=== PATIENT | female | born 1955 | race American Indian/Alaskan Native ===

== ENCOUNTER 2017-07-07 20:50 | Emergency (ER) | payer MEDICARE, OTHER ==
[~2017-07-07] VITALS: Ht 160 cm; Wt 99.3 kg
[~2017-07-07 20:50] MED LIST: ACTOS15 MG PO; ADULT LOW DOSE81 MG PO; ASPIRIN325 MG PO; CALCIO DEL MAR500 MG PO; CITALOPRAM HBR20 MG PO; CRESTOR20 MG PO; FISH OIL500 MG PO; GLIPIZIDE ER10 MG PO; GLUCOPHAGE1000 MG PO; HYDROCHLOROTH12.5 M1 PO; LANTUS100 UNITS/ SUB-Q; LISINOPRIL20 MG PO; METFORMIN HCL500 M1 PO; NORCO 5-325 TA1 EACH PO; NORVASC10 MG PO; NOVOLOG100 UNIT/1 SUB-Q; PLAVIX75 MG PO; ZESTRIL40 MG PO; ZOCOR40 MG PO
[2017-07-07] MEDS ORDERED: LISINOPRIL10 MG PO (21:06)
[2017-07-07] MEDS ORDERED: NORCO 5-325 TA1 EACH PO (22:03)
== END 2017-07-07 22:24 | disposition home or self-care (01) ==
LOC: ED 20:50
DX: S42.302A Unspecified fracture of shaft of humerus, left arm, initial encounter for closed fracture (principal); Z86.73 Personal history of transient ischemic attack (TIA), and cerebral infarction without residual deficits; E11.9 Type 2 diabetes mellitus without complications; Z79.4 Long term (current) use of insulin; Z79.899 Other long term (current) drug therapy; W08.XXXA Fall from other furniture, initial encounter
CPT/HCPCS: 73030; 73060; 99283

== ENCOUNTER 2019-04-19 07:13 | Inpatient (IN) | payer MEDICARE, OTHER ==
[~2019-04-19] VITALS: Ht 160 cm; Wt 98.6 kg
[~2019-04-19 07:13] MED LIST changes: +CLEOCIN HCL300 MG PO; +LISINOPRIL10 MG PO
--- NOTE | 2019-04-19 11:51 | NUR ---
PT UP TO BSC X2 ASSIST. TOLERATED WELL. VOIDED 500ML CLEAR YELLOW URINE. DICKERSON NOTED. O2-2L IN PLACE, SPPO2 92-99%. CALL LIGHT IN REACH. DENIES NEEDS AT THIS TIME. DENIES PAIN.
[2019-04-19] MEDS ORDERED: ZOLOFT50 MG PO (12:16)
[2019-04-19] MEDS ORDERED: CRESTOR5 MG PO ×2 (12:16→12:17)
[2019-04-19] MEDS ORDERED: LISINOPRIL20 MG PO (12:17)
[2019-04-19] MEDS ORDERED: CALCIUM 600 +1 EAC3 PO (12:18)
[2019-04-19] MEDS ORDERED: OXYBUTYNIN CHLOR5 M1 PO (12:19)
[2019-04-19] MEDS ORDERED: MULTI VITAMIN1 EACH PO (12:19)
[2019-04-19] MEDS ORDERED: JANUMET 50-1,01 EACH PO (12:20)
--- NOTE | 2019-04-19 12:44 | EKG ---
[facility] [address] [facility] [place] [address] Signed Normal sinus rhythm Normal ECG When compared with ECG of 19-APR-2019 07:20, (Unconfirmed) premature ventricular complexes are no longer present Confirmed by KRISS KINGSTON MD ([id number]) on 04/19/2019 12:44:04 PM Electronically Signed By: KRISS KINGSTON MD 04/19/19 1244 PATIENT NAME: CHADWICKHENRIQUE TERRENCE Electrocardiogram DATE OF : 53 PHYSICIAN: KRISS KINGSTON MD REPORT #: [id number] REPORT IS CONFIDENTIAL AND NOT TO BE RELEASED WITHOUT AUTHORIZATION
--- NOTE | 2019-04-19 12:44 | EKG ---
[facility] [address] [place] [address] Signed Poor data quality, interpretation may be adversely affected Sinus tachycardia with occasional premature ventricular complexes Incomplete right bundle branch block Cannot rule out Anteroseptal infarct , age undetermined Abnormal ECG When compared with ECG of 08-JUL-2016 11:11, premature ventricular complexes are now present Incomplete right bundle branch block is now present Minimal criteria for Anteroseptal infarct are now present Confirmed by KRISS KINGSTON MD ([id number]) on 04/19/2019 12:43:42 PM Electronically Signed By: KRISS KINGSTON MD 04/19/19 1244 PATIENT NAME: HENRIQUE GENAO TERRENCE Electrocardiogram DATE OF : 53 PHYSICIAN: KRISS KINGSTON MD REPORT #: [id number] REPORT IS CONFIDENTIAL AND NOT TO BE RELEASED WITHOUT AUTHORIZATION
--- NOTE | 2019-04-19 12:45 | NUR ---
ASSISTED PT UP TO BSC X1 ASSIST. VOIDED CLEAR YELLOW URINE. BACK TO BED. DAUGHTER AT BEDSIDE. PT EATING LUNCH. CALL LIGHT IN REACH.
[2019-04-19] MEDS ORDERED: LANTUS100 UNITS/ SUB-Q (13:34)
--- NOTE | 2019-04-19 14:10 | NUR ---
SPOKE WITH PATIENT AND DAUGHTER TORIN ALONZO IN ROOM. PATIENT LIVES WITH DAUGHTER AND HER FAMILY. PATIENT USES A CANE. THEY HAVE A WHEELCHAIR TO USE IF NEEDED. HOME HAS A RAMP. PATIENT WISHES TO RETURN HOME AT DISCHARGE. DAUGHTER STATES THEY ARE WONDERING ABOUT HELP AT HOME. DISCUSSED THEY CAN ASK FOR AN ASSESSMENT THROUGH THE [facility] FOR CAREGIVING HOURS. DISCUSSED THEY CAN HIRE HELP. DISCUSSED THAT [facility] HAS [facility] NURSES AND THEY CAN WORK WITH THEM TO HELP THEM WITH THESE ISSUES. THEY WOULD LIKE TO GO THROUGH [facility]. THEY ARE OK WITH ME CONTACTING THEM. PATIENT HAS CPAP. PATIENT DOES NOT USE OXYGEN AT HOME. WILL CONTINUE TO FOLLOW.
--- NOTE | 2019-04-19 14:20 | NUR ---
assisted pt up to bsc x1 asssit. tolerated well. voided and had small bm. denies pain or shortness of breath at this time. family at bedside. call light in reach. denies needs.
--- NOTE | 2019-04-19 15:40 | NUR ---
CONTACTED LEROY MCDONALD RN [facility] [phone]. DISCUSSED PATIENTS NEEDS. SHE WILL CONTACT PATIENT AND DAUGHTER TO START WORKING WITH THEM AT DISCHARGE.
--- NOTE | 2019-04-19 15:40 | NUR ---
PT RESTING IN BED. FAMILY AT BEDSIDE. DENIES NEEDS AT THIS TIME. CALL LIGHT IN REACH.
--- NOTE | 2019-04-19 16:36 | NUR ---
PT UP TO THE BEDSIDE COMMODE, THEN BACK TO BED. DID THIS ACTIVITY WELL.
--- NOTE | 2019-04-19 17:31 | NUR ---
pt up to bedsdie commode had a medium soft liquid BM. Stool has strong ordor, but pt states that is normal.
--- NOTE | 2019-04-19 17:54 | NUR ---
PT ATE ALL OF DINNER. STATES "I AM FEELING MUCH BETTER". FAMILY AT BEDSIDE. DENIES PAIN. DENIES NEEDS. CALL LIGHT IN REACH
--- NOTE | 2019-04-19 18:51 | NUR ---
PT UP TO BSC X1 ASSIST. TOLERATED FAIR, SOME DICKERSON NOTED. SPO2 98% ON 2L VIA NC. FAMILY AT BEDSIDE. PT DENIES PAIN OR NEEDS AT THIS TIME. CALL LIGHT IN REACH
--- NOTE | 2019-04-19 19:18 | NUR ---
PT UP TO BSC X1 ASSIST. VOIDED. PERICARE PROVIDED, PT BACK TO BED. DENIES PAIN OR SHORTNESS OF BREATH. PT NOTED TO BE MILDLY DICKERSON. CALL LIGHT IN REACH. FAMILY AT BEDSIDE.
--- NOTE | 2019-04-19 20:10 | NUR ---
RESTING IN BED, VISITING WITH FAMILY. UPDATE GIVEN TO FAMILY, EXPLAINED THAT THE DOCTOR WHILE CHECKING WITH THE NURSES WOULD NOT BE IN TO SEE PT TONIGHT. ALSO EXPLAINED THAT ECHOCARDIAGRAM RESULTS TAKE ABOUT 2 DAYS TO COME BACK. PT IS ALERT AND STATES IS BREATHING BETTER. RESP ARE 30-32 AT REST IN BED BUT UNLABORED. BREATH TONES HAVE CRACKLES BASES BILAT R GREATER THAN LEFT. EDEMA IN LOWER EXTREMITIES IS IMPROVING. FAMILY ASKING FOR ABX FOR LEGS. EXPLAINED IS NOT AN INFECTION BUT SORES ARE DUE TO THE EDEMA WHICH CAN CAUSE ITCHING. RECOMENDED COMPRESSION SOCKS.
--- NOTE | 2019-04-19 21:01 | NUR ---
UP TO BSC TO VOID SMALL AMT. IS SLIGHTLY IMPULSIVE BUT FOLLOWS DIRECTIONS WELL. NO INC IN SOB.
--- NOTE | 2019-04-19 21:40 | NUR ---
BS 259 GIVEN 7 UNITS REG INSULIN, AND 100 UNITS LANTUS SUB Q. READY FOR SLEEP. CPAP IN PLACE PER RT.
--- NOTE | 2019-04-19 23:15 | NUR ---
UP TO BSC TO VOID, KATHARINA WELL. BACK TO BED WITHOUT PROBLEM. IS DIAPHORETIC WITH MULT BLANKETS IN PLACE. WHEN ASKED IF SHE WANTED THEM PT STATED YES.
--- NOTE | 2019-04-20 00:55 | NUR ---
PT CALLED OUT FOR ASSISTANCE TO GO TO BATHROOM. TO BSC WITH ONE PERSON ASSIST. VOIDING SMALL AMTS. NO SOB
--- NOTE | 2019-04-20 01:16 | NUR ---
CALLED OUT AGAIN NEEDING TO GO TO BR, UPT BSC, NO VOID. BLADDER SCANNED AND BLADDER WAS EMPTY. BACK ON BIAP FOR SLEEP.
--- NOTE | 2019-04-20 02:45 | NUR ---
UP TO BSC TO VOID. KATHARINA WELL, IV DISLODGED AND DC'D. NO SOB. PT WANTS TO BE OFF BIPAP FOR NOW.
--- NOTE | 2019-04-20 03:26 | NUR ---
IS SLEEPING WITH NC IN PLACE. TRIED 3 ATTEMPTS AT RESTARTING IV. WILL HOLD FOR NOW.
--- NOTE | 2019-04-20 04:24 | NUR ---
SLEEPING SOUNDLY. SAT 97% 2L NC.
--- NOTE | 2019-04-20 04:52 | NUR ---
UP TO BSC TO VOID, KATHARINA WELL.
--- NOTE | 2019-04-20 06:28 | NUR ---
SLEEPING, RESP REG. IV RESTARTED AT 0510, PT KATHARINA WELL.
--- NOTE | 2019-04-20 07:29 | NUR ---
REPORT RECEIVED FROM GLENN PAGAN. PT CURRENTLY RESTING IN BED, EYES CLOSED, RESP EVEN AND UNLABORED. CALL LIGHT IN REACH
--- NOTE | 2019-04-20 08:07 | NUR ---
pt up to bsc, voided pericare porived. pt ambualted around end of bed to chair x1 assist. tolerated well. oxygen removed, spo2 90-94%. set up to wash face and hands. teeth brushed, pt done independently after set up. pt denies shortness of breath or pain. call light in reach. breakfast tray provided and set up. morning meds given per oct.
--- NOTE | 2019-04-20 09:10 | NUR ---
PT UP TO BSC TO HAVE SMALL FORMED SOFT BM. PERICARE DONE. ASSISTED BACK TO CHAIR. TOLERATED WELL. DAUGHTER AT BEDSIDE. CALL LIGHT IN REACH
--- NOTE | 2019-04-20 09:27 | NUR ---
pt sleeping in chair. spo2 86%. applied nc o2 at 2l. spo2 increased to 96%. pt has history of sleep apnea and uses home cpap.
--- NOTE | 2019-04-20 10:25 | NUR ---
ASSISTED PT TO BSC THEN BACK TO BED. PERICARE DONE. PT TOLERATED WELL. DENIES NEEDS. DAUGHTER AT BEDSIDE. CALL LIGHT IN REACH
--- NOTE | 2019-04-20 10:42 | NUR ---
PT UP TO BSC, VOIDED AND TAVO CARE DONE. PT UP TO CHAIR X1 ASSIST. TOLERATED WELL. CALL LIGHT IN REACH.
--- NOTE | 2019-04-20 11:40 | NUR ---
PT UP TO BSC X1 ASSIST. VOIDED. TAVO CARE DONE AND ASSISTED BACK TO CHAIR. CALL LIGHT IN REACH. DENIES NEEDS.
--- NOTE | 2019-04-20 11:53 | NUR ---
PT SITTING IN CHAIR SPO2 96-100 ON 2L VIA NC. REMOVED, RA SPO2 91-96%. WILL CONT TO MONITOR AND ASSESS.
--- NOTE | 2019-04-20 12:56 | NUR ---
PT SITTING IN CHAIR EATING LUNCH. FAMILY AT BEDSIDE. PT AWARE OF TRANSFER TO [facility], ROOM NUMBER AND PLANOF CARE. CALL LIGHT IN REACH.
--- NOTE | 2019-04-20 13:30 | NUR ---
REPORT CALLED TO EJ MIRELES ON [employer]. PT TRANSPORTED VIA CHAIR TO ROOM 109. ALL BELONGINGS INCLUDING CANE AND GLASSES PACKED AND SENT WITH PT.
--- NOTE | 2019-04-20 13:42 | NUR ---
PT SITTING IN CHAIR, EATING LUNCH. A NUMBER OF FAMILY VISITING IN . PT SEEMS ALERT AND ORIENTED AND SEEMS TO BE ENJOYING HER LUNCH. SHE WILL BE TRANSFERRED TO M/S TODAY. EXTENDED A BLESSING, WILL FOLLOW A NEEDED
--- NOTE | 2019-04-20 13:45 | NUR ---
PT ARRIVES TO [facility] RM 109 FROM CCU VIA BEDSIDE CHAIR. PT UP TO BATHROOM WITH RN ASSIST AND USE OF PERSONAL CANE, UNMEASURABLE VOID. PT BACK TO BEDSIDE CHAIR, 1 L [address], PT SATS 94%. FAMILY IN ROOM, CALL LIGHT WITHIN REACH. [id number]: PT TRANSFERRED TO BED WITH RN ASSIST. RT IN WITH BIPAP MACHINE. PT AGREES TO WEAR BIPAP TO NAP. BED ALARM IN PLACE, CALL LIGHT REMAINS IN REACH. FAMILY EXITS PT RM.
--- NOTE | 2019-04-20 16:07 | NUR ---
PT RESTING IN BED WITH EYES CLOSED, EVEN AND UNLABORED RESP WITH BIPAP IN PLACE. BED ALARM ON AND CALL LIGHT WITHIN REACH.
--- NOTE | 2019-04-20 17:28 | NUR ---
PT SITTING IN BEDSIDE CHAIR, EATING DINNER. PT SPOT CHECKED AND SATS 94% ON RA WITH EVEN AND UNLABORED RESP. BIPAP IN STANDBY MODE, RESP THERAPY NOTIFIED. FAMILY IN RM AT BEDSIDE. CALL LIGHT WITHIN REACH.
--- NOTE | 2019-04-20 17:28 | NUR ---
BIPAP REMOVED PER PT REQUEST TO EAT DINNER. PT 02 SAT LEVEL IS 94% ON RA AT THIS TIME. PT DENIES SOB. RESP EVEN AND NON LABORED.
--- NOTE | 2019-04-20 18:31 | NUR ---
RECIEVED PT FROM CCU TODAY AROUND 1330. HX OF VASCULAR DEMENTIA, PT FORGERFUL AT TIMES. 18 G L FOREARM, SALINE LOCKED. SPOT CHECK PT FOR O2 SATS, CURRENTLY ON RA SATS 94%. DYSPNEA ON EXERTION, WAS ON 1 L O2 VIA NC. PT HAS CPAP AT HOME, USING BIPAP THIS ADMISSION. BED ALARM/CHAIR ALARM IN PLACE. 1PA WITH USE OF CANE TO BATHROOM. DAUGHTER IN RM MOST TIMES.
--- NOTE | 2019-04-20 18:45 | NUR ---
BLOOD PRESSURE CUFF REPLACED WITH APPROP SIZE. PREVIOUS DOCUMNETED HIGH READING. BP REDONE AT THIS TIME AND NOW 166/73, P 93.
--- NOTE | 2019-04-20 20:57 | NUR ---
PATIENT JUST UP WITH MICHAELS AND 1PA TO THE BATHROOM FOR THE 2ND TIME IN THE LAST 30 MINUTES. SITTING UP IN BED SIDE ARMCHAIR, WATCHING TV, AND VISITING WITH FAMILY.
--- NOTE | 2019-04-20 21:40 | NUR ---
ASSISTED PATIENT TO THE BATHROOM FROM CHAIR USING CANE. PATIENT IS BACK IN BED. CPAP ON. CALL LIGHT IN REACH. FAMILY WAS IN THE ROOM.
--- NOTE | 2019-04-20 22:05 | NUR ---
ANSWERED CALL LIGHT. PATIENT WANTS CPAP BACK ON.
--- NOTE | 2019-04-20 22:14 | NUR ---
CALL LIGHT ANSWERED. 1 PA TO BATHROOM AND BACK TO BED. CPAP BACK ON. CALL LIGHT IN REACH.
--- NOTE | 2019-04-20 23:04 | NUR ---
ANSWERED CALL LIGHT. 1 PA TO THE BATHROOM AND BACK TO BED.
--- NOTE | 2019-04-21 00:50 | NUR ---
PT CALLED, NEEDED TO USE BATHROOM. NEEDED ASSISTANCE OUT OF BED, BUT ONCE UP SHE USED HER CANE AND AMBULATED TO BR. NEEDED HELP WITH HER PULLING ATTENDS DOWN, AND UP ON THE LEFT SIDE. REQUIRED ASSISTANCE PUTTING HER LEGS INTO BED. ASSISTED WITH CPAP MASK. CALL LIGHT WITHIN REACH.
--- NOTE | 2019-04-21 01:06 | NUR ---
PATIENT RESTING QUIETLY SUPINE ON HER BIPAP. EYES CLOSED AND RESPIRATIONS REGULAR AND EVEN AND IN NO DISTRESS.
--- NOTE | 2019-04-21 01:20 | NUR ---
PATIENT JUST UP TO THE RESTROOM AND VOIDED ANOTHER 100MLS AND IS NOW BACK IN BED ON BIPAP.
--- NOTE | 2019-04-21 03:11 | NUR ---
CARLA RESTING QUIETLY ON HOSPITAL'S BIPAP MACHINE. LOW FOWLERS POSITION HER DAUGHTERS WERE TALKINGG WITH HER ABOUT GOING TO REHAB CLOSE TO HOME. PATIENT JUST WANTS TO GO HOME. CALL LIGHT IN REACH AND EYES ARE CLOSED. PATIENT APPEARS TO BE RESTING QUIETLY NOT ON CPOX MACHINE.
--- NOTE | 2019-04-21 04:57 | NUR ---
PATIENT HAD A GOOD FAMILY VISIT THE FIRST PART OF THE SHIFT AND THEN WENT TO BED. PATIENT HAS BAD URINARY FREQUENCY AND WAS UP TO THE BATHROOM A LOT LAST NIGHT. SHE IS COMPLIANT WITH HER BIPAP AND IS CURRENTLY RESTING QUIETLY WITH EYES CLOSED, RESPIRATIONS REGULAR AND EVEN AND CALL LIGHT IN REACH.
--- NOTE | 2019-04-21 07:23 | NUR ---
PT RESTING, EYES CLOSED WITH BIPAP IN PLACE WITH EVEN AND UNLABORED RESP ON REPORT FROM EJ VALERIO. JUKEBOX ROUTEMAN CHECKS CBG, REPORTS TO THIS RN 53. PT AROUSED BY VERBAL STIMULATION AND SAT UP IN BED TO DRINK HALF CUP ORANGE JUICE. PT DOES NOT WANT TO DRINK ALL OF ORANGE JUICE, PROVIDED ANNIE CRACKERS INSTEAD. WILL CONTINUE TO MONITOR CBG.
--- NOTE | 2019-04-21 07:48 | NUR ---
PATIENT SITTING UP IN CHAIR. RN IN ROOM. PATIENT TAKING HER BREAKFAST. LINENS CHANGED. CALL LIGHT WITHIN REACH. NO OTHER NEEDS AT THIS TIME
--- NOTE | 2019-04-21 08:02 | NUR ---
DR. BAKER NOTIFIED REGARDING BS LEVEL OF 53, THEN INCREASED TO 87 POST 15G CARB ADMIN. NEW ORDER TO RECHECK BS IN ONE HOUR. WILL CONTINUE TO MONITOR.
--- NOTE | 2019-04-21 08:30 | NUR ---
PATIENT SITTING UP IN CHAIR. PATIENT REFUSED TO TAKE A SHOWER TODAY BECAUSE SHE IS THINKING MAYBE SHE IS GOING TO GO HOME TODAY AND SHE PREFERS TO TAKE A SHOWER IN HOME. CALL LIGHT WITHIN REACH. NO OTHER NEEDS AT THIS TIME
--- NOTE | 2019-04-21 08:41 | NUR ---
CALL LIGHT ANSWERED. PATIENT USING BATHROOM. PATIENT BACKS TO CHAIR. VITAL SIGNS AND I&O DONE. CALL LIGHT WITHIN REACH. NO OTHER NEEDS AT THIS TIME
[2019-04-21] MEDS ORDERED: AMLODIPINE BESYL5 MG PO (10:12)
[2019-04-21] MEDS ORDERED: LISINOPRIL20 MG PO (10:12)
[2019-04-21] MEDS ORDERED: FUROSEMIDE20 MG PO (10:13)
[2019-04-21] MEDS ORDERED: POTASSIUM CHLO20 ME1 PO (10:13)
[2019-04-21] MEDS ORDERED: FREESTYLE LITE1 EAC2 MISC (10:14)
[2019-04-21] MEDS ORDERED: FREESTYLE LITE1 EAC1 TD (10:15)
--- NOTE | 2019-04-21 10:54 | NUR ---
CALL LIGHT ANSWERED. PATIENT SITTING UP IN CHAIR. PATIENT GOES TO USE BATHROOM. PATIENT USES A CANE. ONE PERSON ASSISTING. PATIENT BACKS TO CHAIR. CALL LIGHT WITHIN REACH. NO OTHER NEEDS AT THIS TIME
--- NOTE | 2019-04-21 11:19 | NUR ---
PATIENT SITTING UP IN CHAIR. DAUGHTER AN RN IN ROOM. FINAL VITAL SIGNS WERE OBTAINED PRIOR TO DISCHARGE FROM THE UNIT
--- NOTE | 2019-04-21 11:30 | NUR ---
DISCHARGE INSTRUCTIONS GIVEN TO PT AND DAUGHTER. PT DRESSES SELF WITH ASSISTANCE FROM DAUGHTER. IV REMOVED WNL.
== END 2019-04-21 12:30 | disposition home or self-care (01) | DRG 189 ==
LOC: ED 07:13 → CCU 10:03 → MS 04-20 13:47
PROVIDERS: ADMIT Internal Medicine
PROC: 5A09357 Assistance with Respiratory Ventilation, Less than 24 Consecutive Hours, Continuous Positive Airway Pressure (ICD-10-PCS; principal; 2019-04-19)
DX: J96.01 Acute respiratory failure with hypoxia (principal); J81.0 Acute pulmonary edema; I16.1 Hypertensive emergency; I69.354 Hemiplegia and hemiparesis following cerebral infarction affecting left non-dominant side; I11.0 Hypertensive heart disease with heart failure; I50.9 Heart failure, unspecified; G47.33 Obstructive sleep apnea (adult) (pediatric); E11.9 Type 2 diabetes mellitus without complications; E78.5 Hyperlipidemia, unspecified; F32.9 Major depressive disorder, single episode, unspecified; Z79.4 Long term (current) use of insulin; Z79.899 Other long term (current) drug therapy
CPT/HCPCS: 36415; 71045; 71260; 80048; 80053; 83036; 83605; 83735; 83880; 84484; 85025; 85610; 85730; 93005; 93010; 93306; 94660; 94760; 99285-25; J1650; J1815; J1940; J2060; Q9957; Q9967

== ENCOUNTER 2019-07-12 19:22 | Inpatient (IN) | payer MEDICARE, OTHER ==
[~2019-07-12] VITALS: Ht 160 cm; Wt 97.1 kg
--- OUTSIDE RECORDS SUMMARY | ~2019-07-12 | XMS | Encounter Summary ---
Demographics + + + | Address | [address] | | | [place] [address] | + + + | Home Phone | | + + + | Preferred Language | Unknown | + + + | Marital Status | Unknown | + + + | Confucianist Affiliation | Unknown | + + + | Race | Unknown | + + + | Ethnic Group | Unknown | + + + Author + + + | Author | [facility] | | | and [place] | + + + | Organization | [facility] | | | and [place] | + + + | Address | Unknown | + + + | Phone | Unavailable | + + + Care Team Providers + +------+ + | Care Medication Coordinator Name | Role | Phone | + +------+ + PCP | Unavailable | + +------+ + Encounter Details +--------+ + + + + | Date | Type | Department | Care Team | Description | +--------+ + + + + | 07/30/ | [facility] | [facility] | Sergei Melvin | | | 2006 | Encounter | MED CTR SLEEP | MD [address] | | | | | [address] | [facility] | | | | | [place] | [place] [address] | | | | | [address] | [phone] | | | | | [phone] | | | +--------+ + + + + Social History + +-------+ +--------+------+ | Tobacco Use | Types | Packs/Day | Years | Date | | | | | Used | | + +-------+ +--------+------+ | Never Assessed | | | | | + +-------+ +--------+------+ + + + | Sex Assigned at | Date Recorded | | | | + + + | Not on file | | + + + + + + + | Job Start Date | Occupation | Industry | + + + + | Not on file | Not on file | Not on file | + + + + + + + + | Travel History | Travel Start | Travel End | + + + + + + | No recent travel history available. | + + documented as of this encounter Plan of Treatment Not on filedocumented as of this encounter Visit Diagnoses Not on filedocumented in this encounter"
--- OUTSIDE RECORDS SUMMARY | ~2019-07-12 | XMS | Clinical Summary ---
Demographics + + + | Address | [address] | | | [place] [address] | + + + | Home Phone | | + + + | Preferred Language | Unknown | + + + | Marital Status | Unknown | + + + | Spiritism Affiliation | Unknown | + + + | Race | Unknown | + + + | Ethnic Group | Unknown | + + + Author + + + | Author | [facility] | | | and [place] | + + + | Organization | [facility] | | | and [place] | + + + | Address | Unknown | + + + | Phone | Unavailable | + + + Care Team Providers + +------+ + | Care Toll Service Observer Name | Role | Phone | + +------+ + PCP | Unavailable | + +------+ + Allergies Not on File Medications Not on file Active Problems Not on file Social History + +-------+ +--------+------+ | Tobacco [...] recent travel history available. | + + Last Filed Vital Signs Not on file Plan of Treatment + + + + + | Health Maintenance | Due Date | Last Done | Comments | + + + + + | Vaccine: | | | | | Dtap/Tdap/Td (1 - | 4 | | | | Tdap) | | | | + + + + + | Cervical Cancer | | | | | Screening (Pap) | 5 | | | + + + + + | Vaccine: Zoster (1 | | | | | of 2) | 5 | | | + + + + + | Breast Cancer | | | | | Screening | 0 | | | + + + + + | Vaccine: Influenza | | | | | (#1) | 9 | | | + + + + + Results Not on filefrom Last 3 Months"
--- OUTSIDE RECORDS SUMMARY | ~2019-07-12 | XMS | Clinical Summary ---
Demographics + + + | Address | [address] | | | [place] [address] | + + + | Home Phone | | + + + | Preferred Language | Unknown | + + + | Marital Status | Unknown | + + + | Hinduism Affiliation | Unknown | + + + | Race | Unknown | + + + | Ethnic Group | Unknown | + + + Author + + + | Author | [facility] | | | and [place] | + + + | Organization | [facility] | | | and [place] | + + + | Address | Unknown | + + + | Phone | Unavailable | + + + Care Team Providers + +------+ + | Care Supervisor Lamp Shades Name | Role | Phone | + [...]
--- OUTSIDE RECORDS SUMMARY | ~2019-07-12 | XMS | Encounter Summary ---
Demographics + + + | Address | [address] | | | [place] [address] | + + + | Home Phone | | + + + | Preferred Language | Unknown | + + + | Marital Status | Unknown | + + + | Lutheran Affiliation | Unknown | + + + | Race | Unknown | + + + | Ethnic Group | Unknown | + + + Author + + + | Author | [facility] | | | and [place] | + + + | Organization | [facility] | | | and [place] | + + + | Address | Unknown | + + + | Phone | Unavailable | + + + Care Team Providers + +------+ + | Care Educational Program Director Name | Role | Phone | + +------+ + PCP | Unavailable | + +------+ + Encounter Details +--------+ + + + + | Date | Type | Department | Care Team | Description | +--------+ + + + + | 06/07/ | [facility] | [facility] | Paul Cisneros MD | | | 2007 | Encounter | MED CTR GENERIC OP | [address] | | | | | CONV DEPT [address] | [address] [place] | | | | | [place], | [address] | | | | | [place] [address] | | | | | | [phone] | | | +--------+ + + + [...]
--- OUTSIDE RECORDS SUMMARY | ~2019-07-12 | XMS | Clinical Summary ---
Demographics + + + | Address | [address] | | | [place] [address] | + + + | Home Phone | | + + + | Preferred Language | Unknown | + + + | Marital Status | Unknown | + + + | Adventism Affiliation | Unknown | + + + | Race | Unknown | + + + | Ethnic Group | Unknown | + + + Author + + + | Author | [facility] | | | and [place] | + + + | Organization | [facility] | | | and [place] | + + + | Address | Unknown | + + + | Phone | Unavailable | + + + Care Team Providers + +------+ + | Care Security Tester Name | Role | Phone | + [...]
--- OUTSIDE RECORDS SUMMARY | ~2019-07-12 | XMS | Encounter Summary ---
Demographics + + + | Address | [address] | | | [place] [address] | + + + | Home Phone | | + + + | Preferred Language | Unknown | + + + | Marital Status | Unknown | + + + | Jewish Affiliation | Unknown | + + + | Race | Unknown | + + + | Ethnic Group | Unknown | + + + Author + + + | Author | [facility] | | | and [place] | + + + | Organization | [facility] | | | and [place] | + + + | Address | Unknown | + + + | Phone | Unavailable | + + + Care Team Providers + +------+ + | Care Non Destructive Evaluation Manager Name | Role | Phone | + +------+ + PCP | Unavailable | + +------+ + Encounter Details +--------+ + + + + | Date | Type | Department | Care Team | Description | +--------+ + + + + | 06/07/ | [facility] | [facility] | Paul Cisneros MD | | | 2007 | Encounter | MED CTR GENERIC OP | [address] | | | | | CONV DEPT [address] | [address] [place] | | | | | [place], | [address] | | | | | [place] [address] | | | | | | [phone] | | | +--------+ + + + [...]
--- OUTSIDE RECORDS SUMMARY | ~2019-07-12 | XMS | Encounter Summary ---
Demographics + + + | Address | [address] | | | [place] [address] | + + + | Home Phone | | + + + | Preferred Language | Unknown | + + + | Marital Status | Unknown | + + + | Congregation Affiliation | Unknown | + + + | Race | Unknown | + + + | Ethnic Group | Unknown | + + + Author + + + | Author | [facility] | | | and [place] | + + + | Organization | [facility] | | | and [place] | + + + | Address | Unknown | + + + | Phone | Unavailable | + + + Care Team Providers + +------+ + | Care Trial Court Judge Name | Role | Phone | + +------+ + PCP | Unavailable | + +------+ + Encounter Details +--------+ + + + + | Date | Type | Department | Care Team | Description | +--------+ + + + + | 06/07/ | [facility] | [facility] | Paul Cisneros MD | | | 2007 | Encounter | MED CTR GENERIC OP | [address] | | | | | CONV DEPT [address] | [address] [place] [place] | | | | | [place], | [address] | | | | | [place] [address] | | | | | | [phone] | | | +--------+ + + + [...]
--- OUTSIDE RECORDS SUMMARY | ~2019-07-12 | XMS | Encounter Summary ---
Demographics + + + | Address | [address] | | | [place] [address] | + + + | Home Phone | | + + + | Preferred Language | Unknown | + + + | Marital Status | Unknown | + + + | Adventist Affiliation | Unknown | + + + | Race | Unknown | + + + | Ethnic Group | Unknown | + + + Author + + + | Author | [facility] | | | and [place] | + + + | Organization | [facility] | | | and [place] | + + + | Address | Unknown | + + + | Phone | Unavailable | + + + Care Team Providers + +------+ + | Care Mri Assistant Name | Role | Phone | + +------+ + PCP | Unavailable | + +------+ + Encounter Details +--------+ + + + + | Date | Type | Department | Care Team | Description | +--------+ + + + + | 07/30/ | [facility] | [facility] | Sergei Melvin | | | 2006 | Encounter | MED CTR SLEEP | [address] | | | | | [place] [address] | [facility] | | | | | [place] | [place] [address] | | | | | [address] | [phone] | | | | | [phone] | | | +--------+ + + + [...]
--- OUTSIDE RECORDS SUMMARY | ~2019-07-12 | XMS | Encounter Summary ---
Demographics + + + | Address | [address] | | | [place] [address] | + + + | Home Phone | | + + + | Preferred Language | Unknown | + + + | Marital Status | Unknown | + + + | Episcopalian Affiliation | Unknown | + + + | Race | Unknown | + + + | Ethnic Group | Unknown | + + + Author + + + | Author | [facility] | | | and [place] | + + + | Organization | [facility] | | | and [place] | + + + | Address | Unknown | + + + | Phone | Unavailable | + + + Care Team Providers + +------+ + | Care Precision Layout Worker Name | Role | Phone | + +------+ + PCP | Unavailable | + +------+ + Encounter Details +--------+ + + + + | Date | Type | Department | Care Team | Description | +--------+ + + + + | 07/30/ | [facility] | [facility] | Sergei Melvin | | | 2006 | Encounter | MED CTR SLEEP | MD [address] | | | | | [place] [address] | [facility] | | | | | [place] | [place] [address] | | | | | [address] | [phone] | | | | | [phone] | | | +--------+ + + + [...]
[~2019-07-12 19:22] MED LIST changes: +AMLODIPINE BESY10 MG PO; +AMLODIPINE BESYL5 MG PO; +AMOX TR-K CLV1 EAC1 PO; +CALCIUM 600 +1 EAC3 PO; +CRESTOR5 MG PO; +FREESTYLE LITE1 EAC1 TD; +FREESTYLE LITE1 EAC2 MISC; +FUROSEMIDE20 MG PO; +JANUMET 50-1,01 EACH PO; +KEFLEX500 MG PO; +MULTI VITAMIN1 EACH PO; +OXYBUTYNIN CHLOR5 M1 PO; +OXYCODONE HCL5 MG PO; +POTASSIUM CHLO20 ME1 PO; +TYLENOL EXTRA500 MG PO; +VISTARIL25 MG PO; +ZOLOFT50 MG PO
--- OUTSIDE RECORDS SUMMARY | 2019-07-12 19:24 | XMS ---
PreManage Notification: HENRIQUE GENAO Security Fur Matcher Events No recent Security Events currently on file CRITERIA MET - [facility] - Has Care Guidelines - [facility] - 2 Visits in 30 Days CARE PROVIDERS LUIS FERNANDO FERNANDEZ Nurse Practitioner 05/24/2019-Current PHONE: [phone] Joshua has no Care Guidelines for this patient. Care History Medical/Surgical 05/24/2019 [facility] \T\middot;\T\nbsp; PATIENT IS A [employer] MEMBER. \T\middot;\T\nbsp; PLEASE REFER PATIENT TO [facility] FOR NON EMERGENT MEDICAL NEEDS. \T\middot;\ T\nbsp; [facility] CAN SEE PATIENTS SAME DAY FOR APTS IF PATIENT CALLS FIRST THING IN THE MORNING. E.D. VISIT COUNT (12 MO.) 5 [facility] TOTAL 5 NOTE: Visits indicate total known visits. ED/UCC VISIT TRACKING (12 MO.) 07/12/2019 19:23 [facility] TYPE: Emergency COMPLAINT: - VOMITING,SHAKING,DIFFICULTY WALKING 07/12/2019 10:17 [facility] TYPE: Emergency COMPLAINT: - WEAKNESS 05/23/2019 12:17 [facility] TYPE: Emergency COMPLAINT: - FALL, ANKLE PAIN 04/19/2019 07:13 [facility] TYPE: Emergency COMPLAINT: - SOB 12/25/2018 17:03 [facility] TYPE: Emergency COMPLAINT: - POSS INFECTION IN RIGHT LEG DIAGNOSES: - Essential (primary) hypertension - 1 Type 2 diabetes mellitus without complications - Vascular dementia without behavioral disturbance - Prsnl hx of TIA (TIA), and cereb infrc w/o resid deficits - Erythematous condition, unspecified - Cellulitis of right lower limb - Other termite exterminator helper (current) drug therapy - superintendent terminal (current) use of insulin INPATIENT VISIT TRACKING (12 MO.) 05/23/2019 12:18 [facility] TYPE: Observation COMPLAINT: - FALL, ANKLE PAIN DIAGNOSES: - Obstructive sleep apnea (adult) (pediatric) - 1 Type 2 diabetes mellitus without complications - Major depressive disorder, single episode, unspecified - Other termite exterminator helper (current) drug therapy - Acute cystitis without hematuria - Age-rel osteopor w current path fracture, l low leg, init - superintendent terminal (current) use of insulin - Hemiplga following cerebral infrc affecting left nondom side - Essential (primary) hypertension - Unspecified injury of left ankle, initial encounter - Hyperlipidemia, unspecified - Encounter for immunization - alf (current) use of opiate analgesic 04/19/2019 10:03 [facility] TYPE: Medical Surgical COMPLAINT: - HYPERTENSIVE EMERGENCY DIAGNOSES: - Obstructive sleep apnea (adult) (pediatric) - Acute respiratory failure with hypoxia - Major depressive disorder, single episode, unspecified - Hypertensive heart disease with heart failure - 1 Type 2 diabetes mellitus without complications - 1 Type 2 diabetes mellitus without complications - Heart failure, unspecified - Hyperlipidemia, unspecified - Acute pulmonary edema - Obstructive sleep apnea (adult) (pediatric) - Acute respiratory failure with hypoxia - Hyperlipidemia, unspecified - Other group home (current) drug therapy - Heart failure, unspecified - alf (current) use of insulin - Other termite exterminator helper (current) drug therapy - Hemiplga following cerebral infrc affecting left nondom side - Hemiplga following cerebral infrc affecting left nondom side - Major depressive disorder, single episode, unspecified - Hypertensive emergency - Hypertensive heart disease with heart failure - alf (current) use of insulin - Acute pulmonary edema [email or web address]
--- NOTE | 2019-07-13 00:26 | NUR ---
ADMIT PT AT 2250 PER STRETCHER FROM ED. IS AWAKE, ALERT AND ESS ORIENTED THOUGH HAS HX OF DEMENTIA. HX L SIDED WEAKNESS FROM PREVIOUS CVA AND HAD TO BE PULLED FROM STRETCHER TO BED. ASSISTED WITH TURNING, HAS FEELING LIKE SHE WILL FALL WHEN TURNED. DENIES PAIN AT THIS TIME. HAS RECENT FX L FOOT AND IS WEARING ORTHOPEDIC BOOT, REMOVED FOR NOW. DAUGHTER STATES DOES NEED BOOT IF GETS OUT OF BED, EVEN TO BSC. AFFECT IS FLAT WHICH IS NORMAL FOR PT. PT AFFIRMS USE OF CALL LIGHT IF NEEDS TO GET UP. WANTS TO WEAR HOSPITAL CPAP AND RT AWARE.
--- NOTE | 2019-07-13 02:30 | NUR ---
SLEEPING WITH CPAP IN PLACE.
--- NOTE | 2019-07-13 03:15 | NUR ---
PT CONT TO SLEEP. HAS NOT VOIDED SINCE ADMIT TO CCU, REPORTED VY FAMILY THAT SHE HAD VOIDED IN THE ED.
--- NOTE | 2019-07-13 03:54 | NUR ---
AWAKENS EASILY. ASSESSMENT DONE. DENIES NEED TO VOID. DRANK WATER THEN BACK ON CPAP. STATES CAN'T SLEEP WITHOUT IT.
--- NOTE | 2019-07-13 04:17 | NUR ---
DR SHEPPARD IN DEPT. GIVEN UPDATE THAT PT HAS NOT VOIDED SINCE ADMISSION TO CCU. WILL WAIT FOR LABS TO BE RE CHECKED THIS AM.
--- NOTE | 2019-07-13 06:30 | NUR ---
PT CONT TO SLEEP WITH CPAP IN PLACE. RR 28. HR 80'S.
--- NOTE | 2019-07-13 06:58 | NUR ---
AWAKE, ASKING FOR WATER, DENIES NEED TO VOID.
--- NOTE | 2019-07-13 08:06 | NUR ---
PATIENT RESTING UPON INITIAL ASSESSMENT. PT STATES SHE FEELS BETTER. ASSESSMENT COMPLETE. BREAKFAST ORDERED FOR PATIENT.
--- NOTE | 2019-07-13 12:08 | NUR ---
DR. SHEPPARD IN TO SEE PATIENT AT THIS TIME. PT UP TO BSC TO VOID 100 ML. PT NOW IN CHAIR. PT STATES SHE IS FEELING BETTER.
--- NOTE | 2019-07-13 15:30 | NUR ---
In to complete CM assessment. Pt lives at home with so and adult daughter and son in law. Denies needs to go home. Uses [facility] for medical and meds. Has ramp. Daughter Aruna Ackerman provide assistance when needed.
--- NOTE | 2019-07-13 15:46 | NUR ---
PATIENT UP TO BSC TO VOID BUT ONLY VOIDS A TINY AMOUNT. PT NOW IN CHAIR. PT'S DAUGHTER REMAINS IN ROOM. TEMP 100.9. DR. KINGSTON TO BE CALLED. CONTINUE TO MONITOR.
[2019-07-13] MEDS ORDERED: TERBINAFINE HC250 MG PO (16:08)
[2019-07-13] MEDS ORDERED: WELLBUTRIN XL150 MG PO (16:11)
--- NOTE | 2019-07-13 18:27 | NUR ---
PATIENT BACK TO BED AFTER EATING DINNER. TEMP 101.2. DR. KINGSTON AWARE. BLOOD CULTURES DRAWN EARLIER THIS EVENING. PT'S DAUGHTER LEFT AT IS TIME.
--- NOTE | 2019-07-13 19:13 | NUR ---
MED REC COMPLETE
--- NOTE | 2019-07-13 19:24 | NUR ---
PATIENT BACK ON CPAP AT THIS TIME. PT RESTING AND TRYING TO SLEEP.
--- NOTE | 2019-07-13 20:15 | NUR ---
PT READY FOR SLEEP. ASSESSMENT DONE. BS 13, GIVEN 1 UNIT HUMULOG PER SLIDING SCALE. CPAP IN PLACE PER PT REQUEST.
--- NOTE | 2019-07-13 21:43 | NUR ---
pt used call light to request assistance back into bed from BSC. EJ Ackerman and myself assisted pt. she resulted in 75ccs of urine. pt requested more water at this time but nothing further was needed.
--- NOTE | 2019-07-13 23:10 | NUR ---
UP TO [facility] FREQ TO VOID. IS MORE TIRED NOW AND REQUIRING UP TO 2 PERSON ASSIST. BACK ON CPAP WHEN BACK TO BED.
--- NOTE | 2019-07-14 00:04 | NUR ---
UP TO BSC TO VOID, THOUGHT NEEDED TO HAVE BM BUT DID NOT. T 99.8, GIVEN TYLENOL 650MG FOR COMFORT. CALL LIGHT IN REACH.
--- NOTE | 2019-07-14 02:34 | NUR ---
PATIENT UP TO BSC WITH 2 PERSON ASSIST. PATIENT SAT FOR 5 MINS AND DID NOT VOID. BACK TO BED WITH 2PA. LESS THAN 5 MINS AFTER PATIENT WAS SITUATED BACK IN PATIENT SHE CALLED AGAIN REPORTING NEED TO VOID. PLACED PATIENT ON BED RIBERA AND SHE VOIDED 100 ML. PATIENT COMPLAINS OF CPAP, WHICH FREQUNTLY ALARMS WITH HIGH RR ALARM, HOWEVER PATIENT'S RR 24. 3L OXY MASK PLACED ON PATIENT. CALL LIGHT IN REACH. PATIENT REPORTS BEING COMFORTABLE AT THIS TIME.
--- NOTE | 2019-07-14 03:07 | NUR ---
PT FEELING NEED TO VOID ALMOST CONSTANTLY. VOIDS SMALL AMTS USUALY. PT IS VERY FRUSTRATED THAT SHE CAN'T SLEEP. DR KINGSTON CALLED, ORDER FOR DRUMMOND CATH RECIEVED.
--- NOTE | 2019-07-14 03:30 | NUR ---
PT UP TO BSC THOUGHT NEEDED TO HAVE BM. DID VOID 325ML WAS BLADDER SCANNED FOR GREATER 500ML. 16 NIUEAN DRUMMOND CATH INSERTED POST VOID AND HAD RETURN OF 200ML, CLEAR YELLOW URINE. FACE IS FLUSHED.
--- NOTE | 2019-07-14 05:00 | NUR ---
PT STILL AWAKE, CONT TO FEEL IF NEEDS TO VOID DESPITE DRUMMOND. REMINDED THAT CATHETER IS DRAINING URINE. PT IS FRUSTRATED THAT SHE HASN'T SLEPT.
--- NOTE | 2019-07-14 05:58 | NUR ---
NO CHANGE, IS CALMER AFTER BEING TOLD THAT THE DOCTOR WANTED THE CATHETER IN TO DRAIN BLADDER. WATCHING TV. PT DOES HAS POOR SHORT TERM MEMEORY DUE TO HX OF DEMENTIA.
--- NOTE | 2019-07-14 07:49 | NUR ---
PATIENT USES CALL LIGHT AND ASKS FOR CATHETER TO BE REMOVED. PT STATES SHE HASN'T SLEPT ALL NIGHT. PT IS TACHYPNEIC VERY VISIBLY UPON ENTERING INTO ROOM, AND EXP WHEEZES HEARD. ANTERIOR LUNGS ARE CLEAR. PT DENIES SHORTNESS OF BREATH, BUT PATIENT DOES NOT SEEM TO BE A GREAT HISTORIAN OF SYMPTOMS. TEMP 99.6 AT THIS TIME. PT UP TO CHAIR. SP02 DOWN TO 85% ON ROOM AIR. EXP WHEEZES HEARD THROUGHOUT POSTERIOR CHEST AND SOME DIMINISHED BREATH SOUNDS BILATERALY. FINE CRACKLES ALSO HEARD. PT DENIES SHORTNESS OF BREATH. WILL CONTINUE TO MONITOR.
--- NOTE | 2019-07-14 08:04 | NUR ---
DR. KINGSTON NOTIFIED OF INCREASED RR. CHEST XRAY ORDERED AND DUONEB ORDERED. PT SITTING IN CHAIR WITH CALL LIGHT WITHIN REACH.
--- NOTE | 2019-07-14 12:16 | NUR ---
PATIENT REMAINS TACHYNPEIC AND ALSO TACHYCARDIC AT THIS TIME. PT RESTING UNTIL HER LUNCH ARRIVES. PT'S DAUGHTER ALSO IN ROOM. DRUMMOND DRAINING CLEAR YELLOW URINE.
--- NOTE | 2019-07-14 16:29 | NUR ---
PATIENT CONTINUES TO USE CALL LIGHT TO SAY SHE NEEDS TO GET UP TO GO TO THE BATHROOM TO HAVE A BM, BUT PATIENT HAS NOT BEEN ABLE TO HAVE A BM ALL DAY. PT SITS ON COMMODE FOR ABOUT 30 SECONDS AND THEN SAYS SHE IS DONE. PT IS VERY TACHYPNEIC, CURRENTLY BREATHING AT 40. PT NEEDING OXYGEN. HR ELEVATED WELL. PT SEEMS ANXIOUS. COACHED PATIENT ON TAKING SLOWER, DEEPER BREATHS. DR. KINGSTON TO BE NOTIFIED.
--- NOTE | 2019-07-14 18:17 | NUR ---
PT GIVEN LASIX AND POTASSIUM. DRUMMOND DRAINING COPIOUS AMOUNTS OF URINE. PT VERY ANXIOUS AND STATES, "I HAVE TO POOP" WHEN SHE IS ANXIOUS. HR NOW 100, AFTER LOPRESSOR GIVEN. PT'S DAUGHTER BACK IN ROOM AND GIVEN UPDATE ON PATIENT'S STATUS.
--- NOTE | 2019-07-14 20:43 | NUR ---
CALLED DR. KINGSTON ABOUT PT'S TEMPERATURE, HEART RATE AND RESPIRATORY RATE. PT TEMP HAS COME DOWN FROM 102.8 TO 102.0 WITH TYLENOL. NO NEW ORDERS RECIEVED AT THIS TIME.
--- NOTE | 2019-07-14 21:49 | NUR ---
PT TEMPERATURE REDUCED TO 99.6 AFTER TYLENOL ADMINISTRATION. PT COOL AND CLAMMY. CHANGED PILLOW CASES. PT WEARING CPAP AT THIS TIME. HEART RATE AND RESPIRATORY RATE HAVE DECREASED WELL. CALL LIGHT WITHIN REACH. NO FURTHER NEEDS AT THIS TIME.
--- NOTE | 2019-07-14 22:41 | NUR ---
PT ATTEMPTED TO HAVE BOWEL MOVEMENT ON BED RIBERA. UNSUCCESSFUL. ASSISTED WITH REPOSTIONING IN STRETCHER. CALL LIGHT WITHIN REACH. REMAINS ON CPAP. NO FURTHER NEEDS AT THIS TIME.
--- NOTE | 2019-07-15 00:30 | NUR ---
PT RESTING WITH EYES CLOSED, BREATHING EVEN AND UNLABORED WITH CPAP ON. R=28.
--- NOTE | 2019-07-15 02:00 | NUR ---
IN ROOM FOR ASSESMENT AND MEDICATION ADMINISTRATION. PT STATES SHE IS FEELING BETTER. HEART RATE IS CONSISTENTLY UNDER 100, RESPIRATORY RATE 25-30. ASSISTED PT WITH REPOSITIONING IN BED. CALL LIGHT WITHIN REACH. NO FURTHER NEEDS AT THIS TIME.
--- NOTE | 2019-07-15 03:00 | NUR ---
RESPONDED TO PT CALL LIGHT. ASSISTED PT WITH REPOSITIONING IN BED. CALL LIGHT WITHIN REACH. GIVEN FRESH WATER. NO FURTHER NEEDS AT THIS TIME.
--- NOTE | 2019-07-15 04:22 | NUR ---
RESPONDED TO PT CALL LIGHT. PT WAS INCONTINENT OF BOWELS. GOT PT UP TO BSC AND DID A COMPLETE BED CHANGE. PROVIDED DRUMMOND CARE AND PERICARE. PT BACK IN BED, ASSESSMENT COMPLETED. CALL LIGHT WITHIN REACH.
--- NOTE | 2019-07-15 07:30 | NUR ---
PATIENT RESTING IN BED. REPORT RECIEVED FROM [facility] RN. PATIENT RESTING IN BED WITH CPAP IN PLACE. PATIENT HAS CALL LIGHT IN PLACE. NO OTHER NEEDS AT THIS TIME. WILL CONTINUE TO CLOSELY MONITOR.
--- NOTE | 2019-07-15 09:30 | NUR ---
PATIENT ASSESSMENT COMPLETED. PATIENT RESTING IN BED AT THIS TIME. THIS AM PATIENTS BLOOD SUGAR 68. GAVE JUICE AND BREAKFAST ARRIVED MOMENTS LATER ON RECHECK PATIENTS BLOOD SUGAR 87. MD KINGSTON UPDATED. PATIENT BREATH SOUNDS CLEAR WITH CRACKLES NOTED IN BASES. PATIENT IS ON CPAP WITH REST AND 1L OXYGEN VIA NC. PATIENT IS ALERT AND CALLS APPROPRIATELY. BOWEL TONES ACTIVE. PATIENT HAS VISITOR AT BEDSIDE. WILL CONTINUE TO CLOSELY MONITOR.
--- NOTE | 2019-07-15 10:40 | NUR ---
PATIENT FINISHED WITH BREAKFAST AND UPDATED THAT PATIENT WILL MOVE TO [facility] TODAY. PATIENT IS AGREEABLE TO PLAN OF CARE. NO OTHER NEEDS AT THIS TIME. WILL CONTINUE TO CLOSELY MONITOR.
--- NOTE | 2019-07-15 11:15 | NUR ---
PATIENT BOOT PLACE DON LEFT FOOT PRIOR TO TRANSFER AND DRUMMOND CATHETER REMOVED PER ORDERS. PATIENT WILL TRANSFER TO ROOM 107. NO OTHER NEEDS AT THIS TIME. WILL CONTINUE TO CLOSELY MONITOR.
--- NOTE | 2019-07-15 11:35 | NUR ---
PATIENT REPORT GIVEN TO CHEL PAGAN. PATIENT TRANSFERED TO ROOM 107 IN THE CHAIR. PATIENT WAS ABLE TO STAND AND TRANSFER FROM BED TO THE CHAIR WITH 2 PERSON STAND-BY FOR SAFETY. PATIENT TOLERATED WELL. PATIENT CLEANED AND NEW DEPENDS PLACED. PATIENTS DAUGHTER AT THE BEDSIDE AND BOTH ARE AGREEABLE TO PLAN OF CARE. DRUMMOND CATHETER REMOVED PER ORDERS. WILL CONTINUE TO CLOSELY MONITOR.
--- NOTE | 2019-07-15 11:45 | NUR ---
PT RECEIVED FROM CCU, PT SITTING IN CHAIR. PT ON ROOM AIR, LUNG SDOUNDS CLEAR WITH FINE CRACKLES IN BLL, O2 SATS 90%. PT DENIES PAIN. BOWEL TONES ACTIVE, DENIES NAUSEA. PT WITH LEFT SIDED WEAKNESS, SENSATION INTACT, HX CVA, CMS OTHERWISE INTACT. PT WITH LEFT FOOT BOOT IN PLACE. DRUMMOND DISCONTINUED BEFORE TRANSFER. DISCUSSED PLAN OF CARE, ORIENTED TO ROOM. PT DENIES NEEDS AT THIS TIME.
--- NOTE | 2019-07-15 13:16 | NUR ---
PT RESTING IN BED. PT DAUGHTER IN ROOM. PT HAS NO NEEDS AT THIS TIME.
--- NOTE | 2019-07-15 15:30 | NUR ---
PT BLOOD PRESSURE ASSESSED MANULALLY, 148/72 HR 96, METOPROLOL 5 MG IV GIVEN PER ORDER.
--- NOTE | 2019-07-15 15:38 | NUR ---
In to check on pt. She is resting with cpap in place and states she wants to sleep now. Family in room.
--- NOTE | 2019-07-15 17:11 | NUR ---
NOTIFIED RN OF VITAL SIGNS. RN IN ROOM WITH PT.
--- NOTE | 2019-07-15 17:17 | NUR ---
PT WITH FEVER 102.7, O2 SATS IN HIGH 80'S ON ROOM AIR, PLACED ON 1L NC, ENCOURAGED DEEP BREATHING. DR. KINGSTON NOTIFIED, NEW ORDERS FOR CT SCAN OF ABD/PELVIS, BLOOD CULTURES TO BE DRAWN AND WILL CHANGE ANTIBIOTIC.
--- NOTE | 2019-07-15 18:04 | NUR ---
PT TRANSFERED FROM CCU. PT ON 1L NC, LUNG SOUND CLEAR WITH FINE CRACKLES TO BLL. PT WITH FEVER THIS EVENING, WENT FOR CT SCAN, BLOOD CULTURES DRAWN AND ANTIBIOTICS CHANGED. PT UP WITH 2PA, TOE TOUCH WEIGHT BEARING LLE WITH WALKING BOOT. DRUMMOND CATH DC, PT VOIDING.
--- NOTE | 2019-07-15 18:16 | NUR ---
PT WENT FOR CT. PT WILL HAVE DINNER WHEN RETURN.
--- NOTE | 2019-07-15 20:00 | NUR ---
RECEIVED REPORT AT 1900, FOUND PT AWAKE IN ROOM WITH DAUGHTER AT BEDSIDE. PT HAD NO NEEDS OR CONCERNS AT THAT TIME.
--- NOTE | 2019-07-15 20:35 | NUR ---
PT CALLED NEEDING ASSISTANCE TO THE RESTROOM. ASSISTED HER 2PA PIVOT TO BSC WITH BOOT ON LEFT FOOT. PT IS BACK IN BED AND DENIES FURTHER NEEDS. CALL LIGHT IS WITHIN REACH.
--- NOTE | 2019-07-15 21:12 | NUR ---
V/S ARE WDL, PT AFEBRILE AT THIS TIME. WILL CONTINUE TO MONITOR. UPPER LOBES ARE CLEAR WITH COARSNESS IN THE BASES. BASES ALSO ARE DIMINISHED.. ABD SOUNDS ARE PRESENT, ABD SOFT AND NON-TENDER TO TOUCH. RIGHT LOWER LEG HAS SOME TRACE EDEMA PRESENT, LEFT LOWER LEG HAS +2 PITTING EDEMA PRESENT, BILATERAL PEDAL PULSES +1. WALKING BOOT WAS TAKEN OFF SINCE PT IS IN BED. OVERALL STRENGTH +5.
--- NOTE | 2019-07-16 00:15 | NUR ---
PT IS SLEEPING AT THIS TIME. NO NEW CONCERNS NOTED. PT WEARING C-PAP.
--- NOTE | 2019-07-16 03:13 | NUR ---
LOWER LOBES STILL HAVE SOME CRACKLES PRESENT WITH SOME COARSNESS. PT DENIES SOB HOWEVER AND HAS BEEN WEARING HER C-PAPA ALL SHIFT SO FAR. OTHERWISE THERE ARE NO CHANGES WITH THE SECOND ASSESSMENT. PT IS BACK TO SLEEP.
--- NOTE | 2019-07-16 06:09 | NUR ---
PT OVERALL HAD AN UNEVENTFUL NIGHT. PT HAS REMAINED AFEBRILE ALL SHIFT SO FAR., V/S ARE WDL OVERALL, LOWER LOBES STILL HAVE CRACKLES PRESENT AND RR IS OFTEN IN THE 20'S. PT HOWEVER DENIES SOB. BG AT 2100 WAS 135, NO INSULIN WAS GIVEN. A BG SPOT CHECK WAS DONE AT AROUND 0500 AND IT WAS 79. PT STILL HAS +2 EDMEA ON LEFT LOWER LEG, +1 ON RIGHT LOWER LEG, GENERALIZED EDEMA ON LEFT ARM/HAND. PT HAS WEAKNESS IN LEFT ARM/LEG. URNIE OUTPUT IS ADEQUATE. NO OTHER CONCERNS NOTED SO FAR.
--- NOTE | 2019-07-16 09:15 | NUR ---
PT IS ALERT, TWO PERSON ASSIST UP TO CHAIR FOR BREAKFAST, ATE 90% BY HERSELF, COOPERATIVE AND PLEASANT MOOD, DENIES ANY DISCOMFORT. CALL LIGHT IN EASY REACH. WEARING BOOT TO LLEG.
--- NOTE | 2019-07-16 09:21 | NUR ---
PATIENT RESTING IN BED. VITAL SIGNS AND I&O DONE. CALL LIGHT WITHIN REACH. NO OTHER NEEDS AT THIS TIME
--- NOTE | 2019-07-16 10:38 | NUR ---
TWO PERSON ASSIST TO AMBULATE INTO BATHROOM TO VOID, REFUSES TO USE WALKER, STATES SHE ONLY USES HER CAN WHICH IS AT HOME, ASSISTED TO CHAIR AND LUNCH ORDERED. CUP OF TEA GIVEN PER REQUEST. CALL LIGHT IN EASY REACH. SHOWER AGAIN OFFERED AND PT STATES SHE MIGHT AFTER LUNCH.
--- NOTE | 2019-07-16 11:32 | NUR ---
Pt. sitting in chair. States she ran a fever again last night. Denies other c/o. Will go home to her house with her SO and daughter when she discharges.
--- NOTE | 2019-07-16 12:00 | NUR ---
CALL LIGHT ANSWERED. PATIENT SITTING UP IN CHAIR. DAUGHTER AND RN IN ROOM. PATIENT GOES TO USE BATHROOM. TWO PERSON ASSISTING. PATIENT TAKES A SHOWER. ONE PERSON ASSISTING. CALL LIGHT WITHIN REACH. NO OTHER NEEDS AT THIS TIME
--- NOTE | 2019-07-16 13:43 | NUR ---
PATIENT SITTING UP IN CHAIR. IN ROOM. VITAL SIGNS AND I&O DONE. CALL LIGHT WITHIN REACH. NO OTHER NEEDS AT THIS TIME
--- NOTE | 2019-07-16 14:47 | NUR ---
ATE 100% OF LUNCH, ASKED TO LAY DOWN AND WATCH TV. ASSISTED TO BED. DENIES FURTHER NEEDS.
--- NOTE | 2019-07-16 17:13 | NUR ---
PATIENT SITTING UP IN CHAIR. VITAL SIGNS AND I&O DONE. CALL LIGHT WITHIN REACH. NO OTHER NEEDS AT THIS TIME
--- NOTE | 2019-07-16 18:55 | NUR ---
CALL LIGHT ANSWERED. PATIENT SITTING UP IN CHAIR. PATIENT GOES TO USE BATHROOM. TWO PERSON ASSISTING. PATIENT BACKS TO BED. CALL LIGHT WITHIN REACH. NO OTHER NEEDS AT THIS TIME
--- NOTE | 2019-07-16 20:00 | NUR ---
RECEIVED REPORT AT 1900, FOUND PT SLEEPING IN BED. PT HAD NO NEEDS OR CONCERNS AT THAT TIME.
--- NOTE | 2019-07-16 21:19 | NUR ---
V/S ARE WDL. PT HOWEVER DOES HAVE A TEMP OF 99.3 F. ALL LOBES ARE CLEAR AT THIS TIME. LEFT ANLE EDEMA +2, RIGHT ANKLE/FOOT EDEMA +1, ABD SOUNDS ARE PRESENT. PT DENIED PAIN. BG AT 2100 WAS 229, 5 UNITS HUMALOG WERRE GIVEN ALONG WITH 45 UNITS OF LANTUS. WILL CONTINUE TO MONITOR.
--- NOTE | 2019-07-16 23:56 | NUR ---
PT IS SLEEPING AT THIS TIME.
--- NOTE | 2019-07-17 00:40 | NUR ---
2PA PT TO BSC, PUT ON PT'S LEFT BOOT, 2PA PT BK TO BED, TOOK OF BOOT, PUT ON PT'S MASK, LEFT PT TO REST WITH CALL LIGHT IN REACH
--- NOTE | 2019-07-17 01:23 | NUR ---
2PA PT TO BSC, ASST PT C/ PUTTING ON LEFT BOOT, 2PA PT BK TO BED, REMOVED BOOT, ASST PT C/ CPAP MASK, LEFT PT TO REST, BS TABLE AND CALL LIGHT IN REACH
--- NOTE | 2019-07-17 04:35 | NUR ---
PT AT THIS TIME IS SLEEPING. NO NEW CONCERNS NOTED.
--- NOTE | 2019-07-17 06:11 | NUR ---
LOBES AT TIMES WERE CLEAR AND AT TIMES HAD FINE CRACKLES. PERIPHERAL EDEMA IN LOWER LEGS IS UNCHANGED. LEFT HAND EDEMA IS A BIT BETTER. PT USED C-PAP ALL NIGHT. URINE OUTPUT IS VERY GOOD. BG AT 2100 WAS 229, SPOT CHECK BG AT 0545'KODY WAS 99. NO NEW CONCERNS WERE NOTED THIS SHIFT.
--- NOTE | 2019-07-17 06:38 | NUR ---
PT FELT WEAK ON LEFT SIDE SO 2PT PT TO STAND @ BEDSIDE TO USE THE URINAL, 1PA TO PUT PT'S PANTS BK ON, GOT PT INTO BED, CHATTED C/ PT FOR A MIN, LEFT PT TO REST C/ BS TABLE AND CALL LIGHT IN REACH
--- NOTE | 2019-07-17 07:30 | NUR ---
REPORT RECEIVED FROM EJ GARCIA. PT RESTING IN BED WITH EYES CLOSED. CPAP IN PLACE. BED RAILS UP. CALL LIGHT WITHIN REACH.
--- NOTE | 2019-07-17 08:00 | NUR ---
PATIENT REQUESTED TO USE THE RESROOM, PATIENT WASN'T WILLING TO DO MUCH CARE FOR HERSELF, THIS MICROGRINDER OPERATOR ENCOURAGED PATIENT TO DO MUCH ACTIVITY SHE COULD N HER OWN
--- NOTE | 2019-07-17 09:40 | NUR ---
MORNING ASSESSMENT AND MEDICATIONS DUE. 1PA UP TO RESTROOM, PT VOIDS WITHOUT ISSUE. 1PA BACK TO BED. ASSESMENT DONE. LUNG SOUNDS CLEAR, PT ON ROOM AIR WITH O2 ABOVE 92%. PT DENIES PAIN AND NAUSEA. BOOT IN PLACE. MEDICATIONS GIVEN. PT DENIES ADDITIONAL REQUESTS OR COMPLAINTS. CALL LIGHT WITHIN REACH.
--- NOTE | 2019-07-17 10:00 | NUR ---
PATIENT WAS UP IN [facility] FOR BREAKFAST, HAS A VISITOR IN HER ROOM, PATIENT IS DOING MORE OF HER OWN CARE
--- NOTE | 2019-07-17 10:55 | NUR ---
THIS RN TO ROOM TO CHECK ON PT. PT VISITING WITH DAUGHTER. PT DENIES PAIN AND NAUSEA. IV ABX INFUSION COMPLETE. PIV SALINE LOCKED AT THIS TIME. ALCOHOL CAPS APPLIED. WATER REFILLED. PT UP TO CHAIR. CALL LIGHT WITHIN REACH. FAMILY AT BEDSIDE.
--- NOTE | 2019-07-17 12:00 | NUR ---
PATIENT WAS UP IN CHAIR FOR LUNCH, PATIENT HAS A VISITOR, PATIENT IS DONG WELL, 1PA WITH HER CANE, PATIENT IS DOING WELL WITH CARE
--- NOTE | 2019-07-17 12:31 | NUR ---
NOON ASSESSMENT AND MEDICATION DUE. PT UP TO CHAIR EATING LUNCH. PT DENIES PAIN AND NAUSEA. ASSESSMENT DONE. LUNG SOUNDS CLEAR. NO CHANGES FROM THIS MORNING'S ASSSESSMENT. MEDICATIONS GIVEN. MD TO BEDSIDE FOR ROUNDS. FAMILY UPDATED AND STATES THEIR QUESTIONS HAVE BEEN ANSWERED. NO ADDITIONAL REQUESTS OR COMPLAINTS AT THIS TIME. CALL LIGHT WITHIN REACH.
--- NOTE | 2019-07-17 14:18 | NUR ---
ABX DUE. PT REQUESTS ASSISTANCE UP TO RESTROOM. 1PA, CANE UP TO RESTROOM. PT VOIDS WITHOUT ISSUE. PT BACK TO CHAIR. ABX STARTED. PT VISITING WITH FAMILY. DINNER AND BREAKFAST ORDERED. NO ADDITIONAL REQUESTS OR COMPLAINTS AT THIS TIME. CALL LIGHT WITHIN REACH.
--- NOTE | 2019-07-17 15:57 | NUR ---
PATIENT IS IN BED, PATIENT HAS EEN DOING OWN CARE 1PA, PATEINT NEEDED NO OTHER ASSISTANCE
--- NOTE | 2019-07-17 16:55 | NUR ---
AFTERNOON ASSESSMENT AND MEDICATIONS DUE. 1PA, CANE UP TO RESTROOM. PT VOIDS AND HAS SMALL BM WITHOUT ISSUE. PT BACK TO CHAIR. ASSESSMENT DONE. NO CHANGES AT THIS TIME. LUNG SOUNDS CLEAR. PT DENIES PAIN AND NAUSEA. MEDICATIONS GIVEN. PT EATING DINNER. NO ADDITIONAL REQUESTS OR COMPLAINTS AT THIS TIME. CALL LIGTH WITHIN REACH.
--- NOTE | 2019-07-17 17:28 | NUR ---
PT HERE FOR UROSEPSIS. AFEBRIAL THIS SHIFT. ROOM AIR THIS SHIFT. 1PA WITH CANE AND PHYSICAL THERAPY THIS SHIFT, TOE TOUCH WEIGHT BEARING. NO PAIN OR NAUSEA HTI SHIFT. VOIDING QUANTITY SUFFICIENT. UP TO CHAIR FOR MOST OF SHIFT. PT HOPING FOR DISCHRAGE TOMORROW. CPAP USED AT NIGHT. PT USES CALL LIGHT APPROPRIATLY.
--- NOTE | 2019-07-17 18:29 | NUR ---
PT CALL LIGHT ON. 1PA/SBA WITH CANE UP TO RESTROOM, BOOT IN PLACE FOR TRANSFER. PT VOIDS WITHOUT ISSUE. PT BACK TO BED. NO ADDITIONAL REQUESTS OR COMPLAINTS AT THIS TIME. CALL LIGHT WITHIN REACH.
--- NOTE | 2019-07-17 19:30 | NUR ---
HELPED PT TO THE BSC AND BACK TO BED. VITALS AND I&OS DONE AND CHARTED. BLOOD SUGAR DONE WELL. CPAP PUT BACK ON. BEDSIDE TABLE AND CALL LIGHT IN REACH.
--- NOTE | 2019-07-17 20:00 | NUR ---
RECEIVED REPORT AT 1900, FOUND PT SLEEPING IN BED. NO NEW CONCERNS NOTED AT THAT TIME.
--- NOTE | 2019-07-17 20:59 | NUR ---
1PA PT TO BSC, LEFT PT C/ PRIVICY AND CALL LIGHT IN REACH, ASK HER TO CALL WHEN READY
--- NOTE | 2019-07-17 21:10 | NUR ---
HELPED PT TO THE BSC AND BACK TO BED. HELPED HER WITH HER CPAP. BEDSIDE TABLE AND CALL LIGHT IN REACH.
--- NOTE | 2019-07-17 21:18 | NUR ---
V/S WDL OVERALL. PT IS AFEBRILE, BG WAS 165, 1 UNIT HUMALOG GIVEN. ALL LOBES ARE CLEAR, PERIPHERAL EDEMA IS TRACE AT THIS POINT. PT OVERALL IS MUCH STRONGER TONIGHT. PT DENIES PAIN. NO NEW CONCERNS NOTED SO FAR. PT NOW IN BED WEARING C-PAP.
--- NOTE | 2019-07-17 22:01 | NUR ---
1PA PT TO BCS, LEFT PT C/ PRIVACY FOR A MIN C/ CALL LIGHT IN REACH, PT CALLED WHEN DONE ON BSC, 1PA PT INTO BED, REMOVED PT'S BOOT, PLACED PT'S BI/CPAP MASK, LEFT PT TO REST C/ BS TABLE/CALL LIGHT IN PLACE
--- NOTE | 2019-07-17 23:11 | NUR ---
ASSISTED PT TO BSC. AT THIS POINT PT IS A 1 PERSON ASSIST. NO NEW CONCERNS NOTED AT THIS TIME.
--- NOTE | 2019-07-17 23:17 | NUR ---
PT CALLED WHEN READY TO GET OFF BSC AND INTO BED, 1PA PT INTO BED, CPAP MASK IS ON, NOTHING ELSE NEEDED, LEFT PT TO RELAX IN BED C/ CALL LIGHT AND BS TABLE IN PLACE
--- NOTE | 2019-07-18 00:13 | NUR ---
ASST PT C/ BOOT, 1-2PA PT ONTO BSC, LEFT PT IN PRIVACY C/ CALL LIGHT IN REACH ASKED PT TO CALL WHEN READY
--- NOTE | 2019-07-18 00:17 | NUR ---
HELPED PT TO THE BSC AND BACK TO BED. HELPED HER WITH HER CPAP. BEDSIDE TABLE AND CALL LIGHT IN REACH.
--- NOTE | 2019-07-18 00:57 | NUR ---
PT AT THIS TIME IS SLEEPING.
--- NOTE | 2019-07-18 02:20 | NUR ---
PT'S IV WAS COMPLETE AND BEEPING, INFORMED THE RN, PT THEN NEEDED TO USE BSC, 1PA PT ONTO BSC THEN BK TO BED,
--- NOTE | 2019-07-18 02:26 | NUR ---
RT WAS CALLED FOR C-PAP PROBLEM. PT WAS USING THE BSC. PT NOW BACK IN BED.
--- NOTE | 2019-07-18 02:40 | NUR ---
PT CALLED TO GO ON THE BSC, 1PA PT ONTO BSC, 1PA BK TO BED, GAVE FRESH ICE WATER, ASST PT C/ PUTTING ON CPAP MASK,
--- NOTE | 2019-07-18 04:15 | NUR ---
ASSISTED PT BACK TO BED FROM BSC. PT IS DOINGVERY WELL TRANSFERING. ALL LOBES ARE CLEAR, PT SO FAR HAS BEEN AFEBRILE. NO NEW ISSUES NOTED THIS SHIFT SO FAR.
--- NOTE | 2019-07-18 05:03 | NUR ---
PT HAD AN UNEVENTFUL NIGHT. PT HAS REMAINED AFEBRILE SO FAR THIS SHIFT. ALL LOBES ARE CLEAR, ABD SOUNDS ARE PRESENT, PERIPHERAL EDEMA HAS ALMOST RESOLVED WITH THE EXCEPTION OF HER LEFT LOWER LEG. PT OVERALL IS MUCH STRONGER AND ONLY IN NEED OF 1 PERSON ASSISTING. URINE OUTPUT IS MORE THAN ADEQUATE.
--- NOTE | 2019-07-18 05:24 | NUR ---
GOT PT UP TO BSC, THEN BK TO BED, GOT VITALS/I&Os DONE/REQ'D, LEFT PT TO RELAX C/ CALL LIGHT/BEDSIDE TABLE IN PLACE, CPAP MASK IS ON
--- NOTE | 2019-07-18 07:04 | NUR ---
REPORT RECEIVED FROM EJ GARCIA. PT RESTING IN BED WITH EYES CLOSED. RESPIRATIONS EVEN AND UNLABORED, CPAP IN PLACE. BED RAILS UP. CALL LIGHT WITHIN REACH.
--- NOTE | 2019-07-18 07:48 | NUR ---
patient is in bed, blood sugar was done nothing else to report
[2019-07-18] MEDS ORDERED: CEFPODOXIME PR200 MG PO (08:25)
[2019-07-18] MEDS ORDERED: METOPROLOL SUC100 MG PO (08:26)
[2019-07-18] MEDS ORDERED: POTASSIUM CHLO20 ME1 PO (08:27)
[2019-07-18] MEDS ORDERED: ASPIRIN EC81 MG PO (08:27)
[2019-07-18] MEDS ORDERED: FUROSEMIDE20 MG PO (08:28)
[2019-07-18] MEDS ORDERED: LANTUS100 UNITS/ SUB-Q (08:28)
[2019-07-18] MEDS ORDERED: OXYBUTYNIN CHLO10 MG PO (08:29)
[2019-07-18] MEDS ORDERED: AMLODIPINE BESY10 MG PO (08:39)
--- NOTE | 2019-07-18 08:55 | NUR ---
MORNING ASSESSMENT AND MEDICATIONS DUE. PT UP TO CHAIR EATING BREAKFAST. PT DENIES PAIN AND NAUSEA. EDEMA IMPROVING. LUNG SOUND SCLEAR. PIV COTINUES TO INFUSE CEFEPIME. MEDICATIONS GIVEN. PHARMACIST TO BEDSIDE TO REVIEW MEDICATIONS WITH PT. DISCHARGE INSTRUCTIONS REVIEWED WITH PT. PT VERBALIZES UNDERSTANDING, WILL REVIEW INSTRUCTIONS WITH PTS DAUGHTER WELL, PER PT REQUEST, WHEN SHE ARRIVES. NO ADDITIONAL REQUESTS OR COMPLAINTS AT THIS TIME. CALL LIGHT WITHIN REACH.
--- NOTE | 2019-07-18 10:21 | NUR ---
PUMP ALARMING, INFUSION AND FLUSH COMPLETE. PTS FRIEND ARRIVED PT READY FOR DISCHRAGE. DISCHARGE INSTRUCTIONS RE-REVIEWED WITH PT. PT VERBALIZES UNDERSTANDING. PIV DC'D PER PROTOCOL. PT STATES SHE WOULD LIKE TO WAIT FOR HER DAUGHTER TO BRING HER CLOTHES. PT SITTING IN CHAIR. DENIES PAIN AND NAUSEA. NO ADDITIONAL REQUESTS OR COMPLAINTS. WAITING FOR FRIEND. CALL LIGHT WITHIN REACH.
--- NOTE | 2019-07-18 11:15 | NUR ---
PTS DAUGHTER ARRIVED. PT DRESSED WITH 1PA. DISCHARGE INSTRUCTIONS REVIEWED WITH PTS DAUGHTER WHO VERBALIZES UNDERSTANDING AND STATES HER QUESTIONS HAVE BEEN ANSWERED. VITALS TAKEN. PT WHEELED FROM MED/SURG. ALL BELONGINS RETURNED TO PT.
--- NOTE | 2019-07-21 09:45 | NUR ---
RECEIVED CALL FROM [facility] STATING THEY WERE UNAWARE THAT PATIENT WAS DISCHARGED HOME, THEY NEED TO KNOW IF RESUMING HOME HEALTH IS NEEDED. DISCUSSED THAT DR KINGSTON DID PUT IN HIS DISCHARGE SUMMARY THAT SHE CAN RESUME HOME PHYSICAL THERAPY. CLINICALS SENT TO [facility] SO THEY CAN RESUME CARE.
== END 2019-07-18 11:15 | disposition home or self-care (01) | DRG 871 ==
LOC: ED 19:22 → CCU 22:34 → MS 07-15 11:35
PROVIDERS: ADMIT Internal Medicine
DX: A41.51 Sepsis due to Escherichia coli [E. coli] (principal); I50.33 Acute on chronic diastolic (congestive) heart failure; N30.00 Acute cystitis without hematuria; I69.354 Hemiplegia and hemiparesis following cerebral infarction affecting left non-dominant side; I47.1 Supraventricular tachycardia; R65.20 Severe sepsis without septic shock; G47.30 Sleep apnea, unspecified; E78.5 Hyperlipidemia, unspecified; F32.9 Major depressive disorder, single episode, unspecified; E11.9 Type 2 diabetes mellitus without complications; I11.0 Hypertensive heart disease with heart failure; M80.062D Age-related osteoporosis with current pathological fracture, left lower leg, subsequent encounter for fracture with routine healing; D64.9 Anemia, unspecified; R39.15 Urgency of urination; Z79.899 Other long term (current) drug therapy; Z79.4 Long term (current) use of insulin
CPT/HCPCS: 36415; 51702; 70450; 71045; 74177; 80048; 80053; 81001; 83605; 83735; 83880; 84484; 85007; 85025; 85032; 87040; 87077; 87088; 87186; 87502; 93005; 93010; 94640; 94660; 96361; 96365; 96374; 96375; 97162; 99285-25; C9113; J0690; J0692; J0696; J1650; J1815; J1940; J2405; J3475; J7030; J7040; J7121

== ENCOUNTER 2021-04-22 11:58 | Emergency (ER) | payer MEDICARE, OTHER ==
[~2021-04-22] VITALS: Ht 160 cm; Wt 97.3 kg
[~2021-04-22 11:58] MED LIST changes: +ASPIRIN EC81 MG PO; +CEFPODOXIME PR200 MG PO; +METOPROLOL SUC100 MG PO; +OXYBUTYNIN CHLO10 MG PO; +TERBINAFINE HC250 MG PO; +WELLBUTRIN XL150 MG PO
[2021-04-22] MEDS ORDERED: CEFDINIR300 MG PO (15:18)
== END 2021-04-22 16:47 | disposition home or self-care (01) ==
LOC: ED 11:58
DX: N39.0 Urinary tract infection, site not specified (principal); E11.9 Type 2 diabetes mellitus without complications; I10 Essential (primary) hypertension; G47.30 Sleep apnea, unspecified; Z79.899 Other long term (current) drug therapy; Z79.4 Long term (current) use of insulin; Z79.82 Long term (current) use of aspirin
CPT/HCPCS: 80053; 81001; 85025; 87088; 96365; 99284-25; J0696

== ENCOUNTER 2021-09-24 05:50 | Day surgery (SDC) | payer MEDICARE, OTHER ==
[~2021-09-24] VITALS: Ht 160 cm; Wt 91.8 kg
[~2021-09-24 05:50] MED LIST changes: +CEFDINIR300 MG PO
[2021-09-24] MEDS ORDERED: JARDIANCE10 MG PO (06:13)
--- NOTE | 2021-09-24 09:06 | NUR ---
09/24/21 0906 Kayla Hughes 0823 PT ARRIVED IN PACU REACTIVE WITH NASAL AIRWAY IN PLACE. 0827 NASAL AIRWAY REMOVED. 0831 BLOOD SUGAR 109. BP ELEVATED. MEDICATION GIVEN BY ANESTHESIA. 0840 BP DOWN. PT WITH NO C/O'S. 0855 TO DS. REPORT GIVEN TO RN. DAUGHTER AT BEDSIDE.
--- NOTE | 2021-09-24 09:09 | NUR ---
0855: PT ARRIVES TO UNIT VIA STRETCHER FROM PACU. MENTATION AT BASELINE ON ARRIVAL. VSS, RESP EVEN AND UNLABORED. DENIES PAIN AND NAUSEA AT THIS TIME. ICE WATER AND CRACKERS PROVIDED. DRESSING C/D/I. SUPRAPUBIC CATH DRAINS CLEAR YELLOW URINE AT THE BEDSIDE. SCDS IN PLACE. DAUGHTER IS SUPPORTIVE AT THE BEDSIDE. NO NEEDS VOICED. POC DISCUSSED AND PT AGREEABLE AT THIS TIME. CALL LIGHT WITHIN REACH
--- NOTE | 2021-09-24 10:30 | NUR ---
1000: PT AWAKE AND ALERT IN STRETCHER. KATHARINA PO INTAKE WELL, DENIES PAIN AND NAUSEA. DRESSING C/D/I. CATH CONTS TO DRAIN CLEAR, YELLOW URINE AT THE BEDSDE. VSS, RESP EVEN AND UNLABORED. DANGLES AT THE BEDSIDE, KATHARINA WELL. DENIES DIZZINESS AND SOB. DRESSES AND PREPARES FOR D/C WITH ASSISTANCE OF DAUGHTER. 1015: DC INSTRUCTIONS PROVIDED AND DISCUSSED, PT AND DAUGHTER VOICES UNDERSTANDING AND DENY QUESTION AND CONCERNS AT THIS TIME. DAUGHTER SHOWN HOW TO DRAIN CATHETER AND UNDERSTANDING VOICED. SL REMOVED WITH CATH TIP INTACT AND PRESSURE APPLIED TO SITE, WNL. WHEELED OFF OF UNIT BY THIS RN FOR DC. TRANSFERS INTO VEHICLE WITH USE OF MICHAELS, STEADY GAIT. NO PHYSICAL S/S OF DISTRESS AT THIS TIME
--- NOTE | 2021-09-24 18:22 | OR ---
[facility] [address] [facility] [place] [place] [address] Signed DATE OF OPERATION: 09/24/2021 SURGEON: Rafa Scanlon MD PREOPERATIVE DIAGNOSES: 1. Incomplete bladder emptying. 2. Recurrent urinary tract infection. POSTOPERATIVE DIAGNOSES: 1. Incomplete bladder emptying. 2. Recurrent urinary tract infection. NAMES OF PROCEDURES: 1. Diagnostic cystoscopy. 2. Insertion of 18-Anguillan [place] tip suprapubic catheter. ANESTHESIA: General. ESTIMATED BLOOD LOSS: Minimal. COMPLICATIONS: None. SPECIMENS: None. DRAIN: 18-Anguillan [place] tip Sosa catheter, inserted as a suprapubic tube. INDICATION FOR PROCEDURE: Terra is a very pleasant 65-year-old female with a history of uncontrolled diabetes, hypertension, and previous CVA, who recently presented to clinic for routine followup for incomplete bladder emptying and recurrent UTI. Again, her PVR on that day was significantly elevated and she had another active UTI. She was also complaining of severe nocturia, getting up around 5 to 6 times every night to void. I recommended that she try undergoing a suprapubic tube catheter insertion to help manage her incomplete bladder emptying and nocturia symptoms. I did explain to the mother and her daughter that she could still potentially develop recurrent urinary tract infections. However, Electronically Signed By: RAFA SCANLON MD 09/24/211821 PATIENT NAME: TERRA GENAO [facility] O[facility] REPORT DATE OF : 53 REPORT #: [id number] PHYSICIAN: RAFA SCANLON MD PCP: TERRA PAGE REPORT IS CONFIDENTIAL AND NOT TO BE RELEASED WITHOUT AUTHORIZATION [facility] [address] [facility] [place] [place] [address] Signed hopefully this will be lessened since the bladder would be emptied more consistently. After a discussion of the risks and benefits of the procedure, the patient elected to proceed with suprapubic tube insertion. OPERATIVE FINDINGS: 1. On cystoscopy, there was no evidence of any suspicious masses, lesions, or stones. Bilateral ureteral orifices are in their normal anatomic location. 2. Under direct visualization, a trocar was used to create a new suprapubic tube tract into the dome of the bladder. An 18-Anguillan [place] tip Sosa catheter was inserted into the bladder and 15 mL was instilled into the balloon. The placement of the trocar was performed with minimal bleeding and there was no evidence of trauma to the bladder via passage of the trocar. 3. At the end of the procedure, the patient's new suprapubic tube was secured with 0 silk and a Sosa anchor. Manual irrigation of the tube was performed without difficulty, confirming again adequate placement of the suprapubic catheter. DESCRIPTION OF PROCEDURE: After informed consent was obtained, the patient was taken back to the operating room. She was transferred [facility] to the operating room table, where general anesthesia was induced. She was placed in the dorsal lithotomy position and the genitalia prepped and draped in the standard sterile fashion. Her lower abdomen was also prepped in anticipation of placement of a suprapubic tube. Using a 30-degree lens on 22.5 Anguillan introducer, rigid cystoscope was inserted through the urethra into her bladder under direct visualization. Panendoscopic views of the bladder were then obtained. Please see above findings. I then pressed on her bladder a couple of times to get an idea of where the dome of her bladder was with respect to her lower abdomen. With the cystoscope still in place and focused on the dome of the bladder, I passed a spinal needle through the patient's lower abdomen and into the dome of the bladder. I chose placement of the catheter to be approximately 2 finger lengths superior to the pubic symphysis. Once I confirmed passage of the spinal needle, I used an #11 blade to make a stab incision into the desired SP tube tract. I dilated this area bluntly using a hemostat. With full visualization of the dome of the bladder, I passed a trocar into the patient's lower abdomen and through the dome of the bladder, slowly and carefully. The trocar passed with some effort due to the presence of scar tissue in this area. I was easily able to see the end of the trocar and so I removed the inner portion of the trocar, leaving the sheath behind. I passed an 18-Anguillan [place] tip Sosa catheter through the trocar sheath and into the dome of the patient's bladder. The Sosa balloon was filled with 15 mL of water under direct visualization. I then removed the trocar sheath, leaving the suprapubic tube behind. The tube was allowed to drain and I placed a 3-0 Vicryl around the skin of the suprapubic tube site in a single interrupted fashion. I then secured the tube with a 0 silk per protocol. The suprapubic tube was then manually irrigated using a Tavo syringe and the catheter irrigated quite nicely, Electronically Signed By: RAFA SCANLON MD 09/24/21 182 PATIENT NAME: TERRA GENAO [facility] REPORT DATE OF : 53 REPORT #: [id number] PHYSICIAN: RAFA SCANLON MD PCP: TERRA PAGE REPORT IS CONFIDENTIAL AND NOT TO BE RELEASED WITHOUT AUTHORIZATION [facility] [address] [place], [place] [address] Signed confirming placement of the suprapubic tube. The tube was then connected to gravity drainage. Bacitracin and dressing were then placed in the area of the new suprapubic tube. The procedure was then terminated. The patient tolerated the procedure well without any complication. She will now be transferred to the postanesthesia care unit in stable condition. DISPOSITION: I discussed the details of today's procedure with the patient's daughter and answered all of her questions. The patient will need to keep her suprapubic tube to gravity drainage until she sees me again in approximately 4 to 5 weeks. She will undergo her 1st suprapubic tube exchange over a wire at that time. She will be sent home today with cefdinir 300 mg p.o. b.i.d. for a total of 7 days along with oxycodone 5 mg one tablet p.o. q.6 hours p.r.n. pain, dispense #15. MD CHASTITY Ann/BRIDGER /[id number] Copies: ~ Electronically Signed By: RAFA SCANLON MD 09/24/21 1822 PATIENT NAME: TERRA GENAO [facility] O[facility] REPORT DATE OF : 53 REPORT #: [id number] PHYSICIAN: RAFA SCANLON MD PCP: TERRA PAGE REPORT IS CONFIDENTIAL AND NOT TO BE RELEASED WITHOUT AUTHORIZATION
== END 2021-09-24 10:15 | disposition home or self-care (01) ==
LOC: DS 05:50
PROVIDERS: ATTEND Urology
PROC: 0T9B40Z Drainage of Bladder with Drainage Device, Percutaneous Endoscopic Approach (ICD-10-PCS; principal; 2021-09-24 06:45)
DX: R33.9 Retention of urine, unspecified (principal); N39.0 Urinary tract infection, site not specified; E11.65 Type 2 diabetes mellitus with hyperglycemia; I11.0 Hypertensive heart disease with heart failure; I50.9 Heart failure, unspecified; Z86.73 Personal history of transient ischemic attack (TIA), and cerebral infarction without residual deficits; Z79.01 Long term (current) use of anticoagulants; Z79.4 Long term (current) use of insulin
CPT/HCPCS: 80053; J0690; J1100; J1885; J2250; J2405; J2704; J2765; J3010; J7121

== ENCOUNTER 2022-01-25 18:52 | Inpatient (IN) | payer MEDICARE, OTHER ==
[~2022-01-25] VITALS: Ht 160 cm; Wt 95.3 kg
[~2022-01-25 18:52] MED LIST changes: +CALCIUM 500 MG1 EAC5 PO; -CALCIUM 600 +1 EAC3 PO; +JARDIANCE10 MG PO
--- NOTE | 2022-01-26 | NUR ---
RECIEVED REPORT FROM ED RN, PT ARRIVED VIA STRETCHER, DAUGHTER AT BEDSIDE. PT TRANSFERRED TO CCU BED, VITAL SIGNS OBTAINED, ADMISSION COMPLETED, HEAD TO TOE ASSESSMENT COMPLETED, ORDERS, LABS, EMAR REVIEWED, DRUMMOND INSERTED, MEDS GIVEN PER OCT, RT NOTIFIED OF HOME CPAP USE, RT ARRIVED TO INSPECT HOME CPAP
--- NOTE | 2022-01-26 02:33 | NUR ---
PT RESTING, APPEARS COMFORTABLE, HOME CPAP REMAINS ON, DRUMMOND DRAINING YELLOW URINE, MAINTAINCE FLUID INFUSING, NO IMMEDIATE CONCERNS
--- NOTE | 2022-01-26 06:12 | NUR ---
PT RESTING, IN POSITION OF COMFORT, I&OS COMPLETED, LABS REVIEWED, NO MEDS TO GIVE THIS AM, MAINTIANCE GTT INFUSING, DRUMMOND DRAINING YELLOW URINE, PT REMAINS NPO, CALL LIGHT WITHIN REACH, SIDE RAILS RAISED FOR SAFETY, BED IN LOWEST POSITION, AWAITING DAY SHIFT FOR REPORT
[2022-01-26] MEDS ORDERED: METFORMIN HCL500 MG PO (08:01)
[2022-01-26] MEDS ORDERED: LOSARTAN POTASS50 MG PO (08:15)
--- NOTE | 2022-01-26 08:15 | NUR ---
IN PATIENT'S ROOM FOR ASSESSMENT AND IV PUMP RINGING. PT TAKEN OFF HER HOME CPAP. PT AWAKE, ALERT, ORIENTED. PT'S DAUGHTER MANJULA IN ROOM. ASSESSMENT COMPLETE. PT CANNOT MOVE LEFT FINGERS EXCEPT FOR HER PINKIE FINGER. LEFT ARM IN SLING AND WRAPPED WITH COBAN. PT'S DAUGHTER ASKED TO BRING IN LIST OF HOME MEDICATIONS. CBG 182 THIS AM. PULSES IN FEET HARD TO FEEL AND DOPPLER USED AND FOUND PULSES EASILY - MARKED WITH MARKER. PT ABLE TO WIGGLE TOES AND HAS FULL SENSATION. PLAN OF CARE DISCUSSED. WILL CONTINUE TO MONITOR.
[2022-01-26] MEDS ORDERED: ONGLYZA5 MG PO (08:16)
--- NOTE | 2022-01-26 08:22 | NUR ---
DR. MAURER IN TO SEE PATIENT AT THIS TIME AND DISCUSSING PLAN OF CARE. SURGERY LIKELY TO BE DONE THIS AM.
--- NOTE | 2022-01-26 09:09 | NUR ---
PATIENT TURNED TO REMOVE EXCESS BLANKETS FROM UNDER PATIENT. PT GOING TO OR SOON. PT DID NOT TOLERATE MOVING VERY WELL AT ALL, AND YELLS OUT LOUDLY, "OUCH! STOP! OWE IT HURTS!" PT GIVEN MORPHINE BEFORE STARTIGN THIS MOVEMENT. TO OR SOON. CONTINUE TO MONITOR.
--- NOTE | 2022-01-26 10:19 | NUR ---
PATIENT OFF TO SURGERY AT 1000. IV ANCEF AND IV TXA WITH PATIENT. NEW IV STARTED IN RIGHT FOREARM PRIOR TO PATIENT LEAVING.
[2022-01-26] MEDS ORDERED: LANTUS100 UNITS/ SUB-Q (11:03)
[2022-01-26] MEDS ORDERED: LASIX20 MG PO (11:04)
[2022-01-26] MEDS ORDERED: VITAMIN D350 MC3 PO (11:05)
[2022-01-26] MEDS ORDERED: NOVOLOG FL100 UNIT/1 SUB-Q (11:06)
[2022-01-26] MEDS ORDERED: NORVASC10 MG PO (11:07)
--- NOTE | 2022-01-26 11:08 | NUR ---
medications reconciled reconciled using pharmacy records and patient RX vials
--- NOTE | 2022-01-26 12:09 | NUR ---
DR KINGSTON AND DR MAURER, ANESTHESIA ODILON, ANDRIA RN AND EJ QUIÑONEZ AT PT BEDSIDE. NOEPINEPHRINE INITIATED AT 5 MCG/MIN. HR RATE CURRENTLY AT 100-110 BPM.
--- NOTE | 2022-01-26 12:19 | NUR ---
ABG DRAWN AND SENT TO LAB. EKG DONE. HOWARD NOW ON STANDBY LAST BP 164/86. MANUAL 140/90 ON RIGHT UPPER ARM. RESULTS PENDING.
--- NOTE | 2022-01-26 12:24 | NUR ---
ABG RESULTS ARE BACK AND DR. KINGSTON ORDERING BIPAP FOR NOW. PT STARTING TO OPEN EYES.
--- NOTE | 2022-01-26 12:38 | NUR ---
01/26/22 1238 Laney Tobin 1154 PT ARRIVED TO CCU ROOM 126 WITH TWO CCU RNS AT BEDSIDE. ORAL AND NASAL AIRWAY IN PLACE AND JAW THRUST USED TO MAINTAIN AIRWAY.
--- NOTE | 2022-01-26 16:16 | NUR ---
SUMMARY OF EVENTS FROM PATIENT'S RETURN FROM PACU: PATIENT RETURNED FROM SURGERY AT 1154. PT WAS HYPOTENSIVE ON FIRST BP IN CCU ROOM. DR. KINGSTON AND DR. MAURER AT BEDSIDE AT 1210. EKG, CBG DONE. PT REMAINED WITH ORAL AIRWAY WELL NASAL TRUMPET, AND CHARGEMASTER SPECIALIST HOLDING JAW THRUST. RT CALLED FOR ABG AND WAS DRAWN AT 1205. ORAL AIRWAY WAS REMOVED AND THEN PLACED AGAIN PER RT. BIPAP BROUGHT TO ROOM AND PT ON BIPAP AT 1225 AFTER ABG RESULTS REVIEWED. 1227 - BP 61/24 AND ANDROID IOS DEVELOPER GIVES PUSH OF BP MED SUPPORT, WELL NOREPI TURNED UP TO 20 MCG/MIN. BP UP TO 145/69 AT 1230. 1234 - DR. KINGSTON CALLS DR. SERNA FOR CENTRAL LINE. [id number] BLOOD PRESSURES NOW ELEVATED, 250/110 ON MANUAL AND 220/80. NOREPI ON STANDY AT THAT POINT. 1239 - DR. KINGSTON REQUESTING PT BE INTUBATED FOR STABILITY. 1245 - ANDROID IOS DEVELOPER ODILON RANDHAWA INTUBATES PATIENT SUCCESSFULLY X1 ATTEMPT. 1247- BP DROPPING AGAIN AFTER INTUBATION - 67/49 AND 55/24 AT 1250. NOREPI TURNED UP TO 10. 1252 - CODE BLUE CALLED. ETC02 DOWN TO 10 AT THE LOWEST AND UNABLE TO PALPATE PULSES. SINUS RHYTHM ON THE MONITOR. 1 MG IV EPINEPHRINE GIVEN. 1253 - PULSE PALPATED AND COMPRESSIONS STOPPED. ED PHYSICIAN ARRIVES TO BEDSIDE. 1255 - BP NOW 224/129 AND NOREPI TURNED DOWN TO 2 MCG/MIN. 1259 - MANUAL BP 180/98. 1300 - EKG DONE PER RT. RIGHT SIDED EKG DESIRED BUT UNABLE TO OBTAIN DUE TO PATIENT'S INSTABILITY. 1305 - BP DOWN TO 83/48. 3RD IV SITE STARTED IN LEFT FOREARM AND SOME BLOOD DRAWN FOR LABS. 1307 - PT BECOME PULSELESS AGAIN AND COMPRESSIONS STARTED. ETC02 DOWN TO 16 AGAIN, WHERE IT WAS AT 30 AT 1256. 1 MG IV EPINEPHRINE GIVEN PUSH. HR ON MONITOR 89, SINUS RHYTHM. 1308 - PULSE WAS PALPATED AND CPR HALTED. NOREPI TURNED UP TO 20 MCG/MIN. 1310 - BP 223/118. 1312 - BP 170/80 MANUAL. EPINEPHRINE GTT BROUGHT TO ROOM BY PHARMACIST. 1316 - EPINEPHRINE GTT STARTED AT 1 MCG/MIN. BP AT 1315 110/79. 1 MG EPINEPHRINE GIVEN IV PUSH. ETC02 19. HR 132 SINUS TACH. 1321 - EPI TURNED UP TO 15 MCG/MIN PER DR. KINGSTON VERBAL ORDER, AND NOREPI TURNED TO 15 MCG/MIN FROM 20. BP 178/101. 1322 - BP 132/86 AND ETC02 18. 1325 - BP 116/81, ETC02 18. HR 115. 0.5 MG IV EPINEPHRINE GIVEN IV PUSH. 1327 - BP 168/105. ANOTHER 0.5 MG IV EPINEPHRINE PUSH GIVEN. CENTRAL LINE PLACED PER DR. SERNA AND LABS COLLECTED TO BE SENT. 1334 - LABS SENT. 0.5 MG IV EPINEPHRINE GIVEN IV PUSH. ETC02 17. 1338 - ETC02 DOWN TO 16. BP 138/84. FEMORAL PULSE LOCATED WITH DOPPLER ON RIGHT SIDE. 1341 - BP 115/74. PT'S DAUGHTER AT BEDSIDE AND HOLDING PATIENT'S HAND. ETC02 DROPPING TO 15. 1343 - ETC02 DOWN TO 14. BP 122/91. SP02 DOWN TO 87% ON 100% FI02 ON VENT. VENT SETTINGS PER RT. 1345 - PULSE UNABLE TO BE PALPATED OR DOPPLERED - COMPRESSIONS STARTED. 1 MG IV EPINEPHRINE GIVEN PUSH. 1347 - ETC02 UP TO 30 WITH COMPRESSIONS. STILL NO PALPABLE OR DOPPLER PULSE. RHYTHM SINUS TACH 107. 1348 - ETC02 UP TO 45. 1349 - IV SODIUM BICARB PUSH GIVEN. 1350 - PULSE PALPATED AND CPR HALTED. 2ND IV BAG OF EPINEPHRINE BROUGHT INTO ROOM AND STARTED AT 15 MCG/MIN, FOR A TOTAL OF 30 MCG/MIN PER DR. KINGSTON. 1352 - ETC02 24. BP 163/93. SP02 86% ON 100% FI02. 1355 - BP 129/72 AND HR 117. ETC02 21. SP02 DOWN TO 82%. 1357 - ETC02 19. BP 86/67. HR 109. 1359 - 50 MCG IV EPINEPHRINE GIVEN. 1400 - BP 91/58. SP02 88%. HR 97. ETC02 17. 1402 - 100 MCG EPINEPHRINE IV PUSH. ETC02 DOWN TO 13. REYNOLD'S KATE AT BEDSIDE HOLDING PATINET'S HAND. 1405 - ETC02 DOWN TO 12. 1406 - NO PULSE PALPATED OR DOPPLER AND COMPRESSIONS STARTED. 1407 - HR DOWN TO 65 AND QRS BECOMING MORE WIDE. 1408 - PULSE WAS DETECTED VIA DOPPLER AND CPR STOPPED. ETC02 29. BP 119/81. HR 93, SINUS RHYTHM. 119/81 BP. 1410 - HR 114 AND 114/80 BP. 1412 - DR. MAURER IN DISCUSSING PLAN OF CARE WITH FAMILY. DECISION MADE TO NOT RESTART COMPRESSIONS IF PATIENT BECOMES PULSELESS AGAIN, AND NO FURTHER EPI DOSES TO BE GIVEN. 1415 - FAMILY IN ROOM AT BEDSIDE. BP 104/84, ETC02 18, HR 110. 1420 - HR DOWN TO 49 AND WIDE COMPLEX W/O P WAVES PRESENT. BP 74/41. 1421 - AGONAL BREATHING NOTED WHILE ON VENT. FAMILY AT BEDSIDE. 1422 - HR DOWN TO 30s. NO PALPABLE PULSE. 1426 - DR. KINGSTON IN ROOM TO PRONOUNCE PATIENT AT TIME OF . PT IN ASYSTOLE. FAMILY REMAINS IN ROOM AT THIS TIME AND WAITING FOR APPROVAL FROM [employer] TO RELEASE BODY. 1715 - [employer] NOW HERE AND WILL BE TAKING BODY TO HOME.
--- NOTE | 2022-01-26 17:41 | NUR ---
Johnson arrived 17:16. All personal belongings left with family. Johnson left with pt 17:35.
--- NOTE | 2022-01-26 21:18 | EKG ---
[facility] [address] [facility] [place] [address] Signed Normal sinus rhythm Left axis deviation Minimal voltage criteria for LVH, may be normal variant ( [place] product ) Abnormal QRS-T angle, consider primary T wave abnormality Abnormal ECG When compared with ECG of 17-SEP-2021 13:15, Incomplete right bundle branch block is no longer present Confirmed by NILES SHEPPARD MD ([id number]) on 01/26/2022 9:18:15 PM Electronically Signed By: NILES SHEPPARD MD 01/26/222117 PATIENT NAME: HENRIQUE GENAO [facility] Electrocardiogram DATE OF : 53 PHYSICIAN: NILES SHEPPARD MD REPORT #: [id number] REPORT IS CONFIDENTIAL AND NOT TO BE RELEASED WITHOUT AUTHORIZATION
--- NOTE | 2022-01-26 21:19 | EKG ---
[facility] [address] [facility] [place] [address] Signed Normal sinus rhythm Left axis deviation Right bundle branch block Abnormal ECG When compared with ECG of 25-JAN-2022 21:09, (Unconfirmed) Right bundle branch block is now present Confirmed by NILES SHEPPARD MD ([id number]) on 01/26/2022 9:19:21 PM Electronically Signed By: NILES SHEPPARD MD 01/26/22 2119 PATIENT NAME: CHADWICKHENRIQUE ANN Electrocardiogram DATE OF : 53 PHYSICIAN: NILES SHEPPARD MD REPORT #: [id number] REPORT IS CONFIDENTIAL AND NOT TO BE RELEASED WITHOUT AUTHORIZATION
--- NOTE | 2022-01-26 21:20 | EKG ---
[facility] [address] [facility] [place], [place] [address] Signed Sinus tachycardia Left axis deviation Right bundle branch block Inferior infarct , age undetermined Abnormal ECG When compared with ECG of 26-JAN-2022 11:03, (Unconfirmed) No significant change was found Confirmed by NILES SHEPPARD MD ([id number] on 01/26/2022 9:19:43 PM Electronically Signed By: NILES SHEPPARD MD 01/26/222119 PATIENT NAME: HENRIQUE GENAO [facility] Electrocardiogram DATE OF : 53 PHYSICIAN: NILES SHEPPARD MD REPORT #: [id number] REPORT IS CONFIDENTIAL AND NOT TO BE RELEASED WITHOUT AUTHORIZATION
--- NOTE | 2022-01-27 08:24 | EX ---
[facility] [address], [place] [address] Signed ADMISSION DATE: 01/25/2022 DISCHARGE DATE: 01/26/2022 DATE OF : 01/26/2022 HISTORY: The patient was a 66-year-old female, who suffered a ground-level fall last night after losing her balance. She was transported to the emergency department, where radiographs showed a left hip fracture and left medial condyle fracture of the humerus. 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 Risks and benefits of the operative treatment were discussed with the patient and her daughter and they elected to proceed. Her labs data were good. Her EKG was unchanged. She was taken to the operating room, where she was placed on the operating room table and the surgery was begun. She did well with the surgery until about two-thirds of the way through when her pulse rate and blood pressure began to drop. We went ahead and finished the operation as her vital signs were covered with a little bit of medication. Wounds were dressed and she was taken to the ICU. The patient then again had a drop in her heart rate and blood pressure, which trended down to blood pressure in the 60s and the heart rate in the 60s and 70s. This was brought up with ephedrine and epinephrine. She was started on a drip of epinephrine and nor-epi. We reached a maximum dose of the epinephrine and continued to give periodic dosages of the epi bolus IV every time her heart rate and blood pressure were dropped. Because of her instability, we did go ahead and have Anesthesia intubate the patient and placed her on the ventilator. Her oxygen saturations remained relatively good throughout the episode. After multiple episodes of her pulse and blood pressure going up and down, we had reached the maximum dose of the epinephrine that we could give in bolus form. I had a long discussion with the family regarding the likelihood that she was not going to recover from this episode. We discussed and they elected to proceed with ceasing efforts if her heart rate and blood pressure dropped again. It was less than 5-10 minutes later that her heart rate dipped and her blood pressure became unobtainable. The heart rate went to an agonal rhythm and eventually asystole. Auscultation of the heart for 2 minute showed no heart tones. The ventilator was then removed and the family was left in the room with the patient. Fabby Beth MD BA/LUIS MIGUELL /[id number] Electronically Signed By: FABBY BETH MD 01/27/22 0824 PATIENT NAME: HENRIQUE GENAO TERRENCE SUMMARY DATE OF : 53 REPORT #: [id number] PHYSICIAN: FABBY BETH MD PCP: HENRIQUE PAGE REPORT IS CONFIDENTIAL AND NOT TO BE RELEASED WITHOUT AUTHORIZATION [facility] [address] [place] [id number] Signed Copies: ~ Electronically Signed By: FABBY BETH MD 01/27/22 0824 PATIENT NAME: HENRIQUE GENAO TERRENCE SUMMARY DATE OF : 53 REPORT #: [id number] PHYSICIAN: FABBY BETH MD PCP: HENRIQUE PAGE REPORT IS CONFIDENTIAL AND NOT TO BE RELEASED WITHOUT AUTHORIZATION
--- NOTE | 2022-01-27 08:24 | OR ---
[facility] [address] [place], [place] [address] Signed DATE OF OPERATION: 01/26/2022 SURGEON: Fabby Beth MD PREOPERATIVE DIAGNOSIS: Left intertrochanteric hip fracture. POSTOPERATIVE DIAGNOSIS: Left intertrochanteric hip fracture. PROCEDURE PERFORMED: Left bipolar hemiarthroplasty. BETTING AGENCY COUNTER CLERK: JOSE Goldsmith. Cris was present and critical for all portions of procedure. ANESTHESIA: Spinal. BLOOD LOSS: 150 mL. IMPLANTS: Jermaine size 12 stem with a -3 head and a 43 bipolar. BRIEF HISTORY: Terra is a 66-year-old female suffered a ground-level fall overnight. She was admitted to the hospital and cleared medically. Risks and benefits of operative treatment were discussed with her. Because of her medical status, which was fairly optimized at this point, we want to get her surgery done and get her mobilized as soon as possible. Risks, benefits, and alternatives of surgery were discussed with her and she elected to proceed. Once consent was obtained, she was taken to the operating room. After adequate anesthesia, she was placed in the right lateral decubitus position on the operating room table. Axillary roll was placed and all downside pressure points were well padded. The left hip was then prepped and draped in a standard sterile fashion. Standard anterolateral approach was taken through skin and subcutaneous tissue. The IT band was divided longitudinally. The vastus lateralis was then divided from the tip of the trochanter distally and peeled subperiosteally around to the level of the lesser trochanter. The lesser trochanter was gone, but there was a defect there. Electronically Signed By: FABBY BETH MD 01/27/22 0824 PATIENT NAME: TERRA GENAO OPERATIVE REPORT DATE OF : 53 REPORT #: [id number] PHYSICIAN: FABBY BETH MD PCP: TERRA PAGE REPORT IS CONFIDENTIAL AND NOT TO BE RELEASED WITHOUT AUTHORIZATION [facility] [address] [place], [place] [address] Signed The capsule was split anteriorly and an elevated anterior medially laterally. This allowed visualization of the femoral head. There was a comminuted intertrochanteric/basicervical fracture. The femoral neck cut was made one fingerbreadth above the lesser trochanter, where I thought that was. The femoral head was then removed with some difficulty. She had a sizable ligamentum teres. The acetabulum was found to be intact. We measured the head and trialed a 43 bipolar, which was good. The attention was turned to proximal femur. The bone fragments were removed and the femoral neck cut was freshened up. The greater trochanter did have a sagittal split in it, but was otherwise intact. The femur was carefully elevated and opened using PersistIQ cutter, followed by the Steven awl. We then broached up to a 12, which was found to be well fitting. The 12 was left in position with a -3 head and a 53 bipolar. We then reduced the hip. She had excellent range of motion. Her leg lengths appeared equal. We then dislocated the trials and removed them. The final stem was impacted to the same level as the broach. The 28 -3 head was impacted and the bipolar was assembled and placed on it. Again, the hip was reduced. Excellent range of motion and leg lengths. A 1.7 Synthes cable was then placed from the calcar across the greater trochanter in two different places, this was then tightened appropriately, but not too tight due to the soft bone. The wound was copiously irrigated with normal saline under pulse lavage with an Irrisept in the middle. At this point of the procedure, the patient became hemodynamically little bit unstable, so we closed the vastus and IT band layers independently, closed the subcutaneous tissue and stapled the skin and Acticoat 7 dressing with a hip spica compression dressing was placed. The patient was resuscitated with medications and her blood pressure and pulse were stable at the end of the procedure. She was taken back to the ICU and in stable condition. Fabby Beth MD BA/LUIS MIGUELL /[id number] Copies: ~ Electronically Signed By: FABBY BETH MD 01/27/22 0824 PATIENT NAME: CHADWICKTERRA [facility] OPERATIVE REPORT DATE OF : 53 REPORT #: [id number] PHYSICIAN: FABBY BETH MD PCP: TERRA PAGE REPORT IS CONFIDENTIAL AND NOT TO BE RELEASED WITHOUT AUTHORIZATION
--- NOTE | 2022-01-28 12:13 | OR ---
[facility] [address] [place], [place] [address] Signed DATE OF OPERATION: 01/26/2022 SURGEON: Odilon Serna MD PREOPERATIVE DIAGNOSES: Critical illness, need for central venous access including power-tolerant central venous catheter. POSTOPERATIVE DIAGNOSIS: Critical illness, need for central venous access including power-tolerant central venous catheter. PROCEDURE: Right internal jugular central venous catheter placement. ANESTHESIA: A 1% lidocaine. DESCRIPTION OF PROCEDURE: In the mild Trendelenburg position, her face was turned towards the left slightly. She had a very plethoric body habitus including the neck. The neck and upper torso were prepared with chlorhexidine solution and draped sterilely. Using the Arrow triple-lumen PowerPort catheter kit, 1% lidocaine was injected over the right sternocleidomastoid muscle area. Sterile glove, gown, mask, and so forth were maintained as per hospital protocol. Using the Seldinger technique, the right internal jugular vein was easily accessed showing dark nonpulsatile blood. A flexible J-wire was passed down the needle without problem. The site was incised with an 11 blade and dilated with dilator device and a previously inspected and irrigated Arrow triple-lumen PowerPort type catheter was placed over the wire, the wire was removed. Aspiration on the distal port showed dark nonpulsatile blood. Approximately 20 mL of blood was taken for additional studies as needed. The catheter was secured to the skin with the enclosed silk suture and an anti-infective disk was applied as was an Opsite. The patient tolerated the procedure well, remains hemodynamically stable at this time. Odilon Serna MD Electronically Signed By: ODILON SERNA MD 01/28/22 1213 PATIENT NAME: CHADWICKHENRIQUE TERRENCE OPERATIVE REPORT DATE OF : 53 REPORT #: [id number] PHYSICIAN: ODILON SERNA MD PCP: HENRIQUE PAGE REPORT IS CONFIDENTIAL AND NOT TO BE RELEASED WITHOUT AUTHORIZATION [address] [place] [address] Signed /[facility] /[id number] cc: MD Primitivo Rodriguez MD Copies: KRISS KINGSTON MD, BRADLEY MD ~ Electronically Signed By: ODILON SERNA MD 01/28/22 1213 PATIENT NAME: GENAOHENRIQUE TERRENCE OPERATIVE REPORT DATE OF : 53 REPORT #: [id number] PHYSICIAN: ODILON SERNA MD PCP: HENRIQUE PAGE REPORT IS CONFIDENTIAL AND NOT TO BE RELEASED WITHOUT AUTHORIZATION
--- NOTE | 2022-01-28 12:13 | CONS ---
[facility] [address] [place], [place] [address] Signed DATE OF CONSULTATION: 01/26/2022 REQUESTING PHYSICIAN: Kriss Kingston M.D. PROBLEM: Cardiac arrest, need for central venous access. HISTORY OF PRESENT ILLNESS: This 66-year-old [place] woman underwent operation by Dr. Primitivo Beth this morning including a left hip operation. She is known also to have a left arm fracture. She was said to have had hemodynamic instability intraoperatively including bradycardia. The operation was completed expeditiously and she is transferred to the ICU for further management. She was found to have episodes of extreme hypotension with systolic pressure of less than 60, alternating with tachycardia and episodes of significant hypertension. She required chest compressions at least twice due to loss of rhythm. I was asked by Dr. Kingston to place emergency central venous access anticipating inotropic support as well as probable imaging study for pulmonary embolism or other similar malady. PHYSICAL EXAMINATION: GENERAL: This is an obese white woman, who at present as blood pressure of 222/113. Her pulse is 114. She is unconscious and sedated and is completely ventilated. NECK: Shows no tracheal deviation or jugular venous distention. She has a plethoric short neck. Clavicles are not deformed. She has scarring over the left shoulder area and a splint like device on the left arm. ABDOMEN: Quite obese. EXTREMITIES: Show no clubbing, cyanosis, or edema. She has a wraparound Russell wrap in the mid section of the lower pelvis. ASSESSMENT AND PLAN: Due to the expediency of need for central venous access for the aforementioned reasons, formal consent is unable to be undertaken and an administrative consent is taken. All managing physicians understand the risks of bleeding, infection, pneumothorax, and other unforeseen complications related to placement of a central venous catheter and wished to proceed. Odilon Serna MD Electronically Signed By: ODILON SERNA MD 01/28/22 1213 PATIENT NAME: HENRIQUE GENAO CONSULTATION DATE OF : 53 REPORT #: [id number] PHYSICIAN: ODILON SERNA MD PCP: HENRIQUE PAGE REPORT IS CONFIDENTIAL AND NOT TO BE RELEASED WITHOUT AUTHORIZATION [place] [id number] [facility] [place], [place] [address] Signed /BRIDGER /[id number] cc: Kriss Kingston MD Copies: KRISS KINGSTON MD ~ Electronically Signed By: ODILON SERNA MD 01/28/22 1213 PATIENT NAME: HENRIQUE GENAO CONSULTATION DATE OF : 53 REPORT #: [id number] PHYSICIAN: ODILON SERNA MD PCP: HENRIQUE PAGE REPORT IS CONFIDENTIAL AND NOT TO BE RELEASED WITHOUT AUTHORIZATION
== END 2022-01-26 17:20 | DRG 521 ==
LOC: ED 18:52 → CCU 22:16
PROVIDERS: ADMIT Specialist; ATTEND Specialist
PROC: 05HM33Z Insertion of Infusion Device into Right Internal Jugular Vein, Percutaneous Approach (ICD-10-PCS; 2022-01-26)
PROC: 5A12012 Performance of Cardiac Output, Single, Manual (ICD-10-PCS; 2022-01-26)
PROC: 3E033XZ Introduction of Vasopressor into Peripheral Vein, Percutaneous Approach (ICD-10-PCS; 2022-01-26)
PROC: 0SRS0JZ Replacement of Left Hip Joint, Femoral Surface with Synthetic Substitute, Open Approach (ICD-10-PCS; principal; 2022-01-26 10:00)
DX: S72.142A Displaced intertrochanteric fracture of left femur, initial encounter for closed fracture (principal); J96.02 Acute respiratory failure with hypercapnia; S42.492A Other displaced fracture of lower end of left humerus, initial encounter for closed fracture; I69.354 Hemiplegia and hemiparesis following cerebral infarction affecting left non-dominant side; I13.0 Hypertensive heart and chronic kidney disease with heart failure and stage 1 through stage 4 chronic kidney disease, or unspecified chronic kidney disease; Z20.822 Contact with and (suspected) exposure to COVID-19; I95.9 Hypotension, unspecified; I46.9 Cardiac arrest, cause unspecified; I25.10 Atherosclerotic heart disease of native coronary artery without angina pectoris; I50.9 Heart failure, unspecified; N18.9 Chronic kidney disease, unspecified; E78.5 Hyperlipidemia, unspecified; F32.A Depression, unspecified; E11.22 Type 2 diabetes mellitus with diabetic chronic kidney disease; G47.33 Obstructive sleep apnea (adult) (pediatric); Z79.4 Long term (current) use of insulin; Z79.899 Other long term (current) drug therapy; W18.39XA Other fall on same level, initial encounter
CPT/HCPCS: 29105; 31500; 36415; 51702; 71045; 73060; 73502; 73560; 80048; 80053; 81001; 82803; 83735; 83880; 85025; 85610; 86850; 86900; 86901; 87502; 93005; 93010; 94002; 94660; 99285-25; C1776; C9803; J0171; J0330; J0461; J0690; J0735; J1100; J1885; J2001; J2250; J2270; J2370; J2405; J2704; J2765; J3010; J7040; J7121; U0003